=== PATIENT | female | born 1960 | race Caucasian/White ===

== ENCOUNTER 2020-07-21 10:23 | Outpatient (CLI) | payer OTHER | END 2020-07-21 10:24 | disposition home or self-care (01) | LOC: CSHULT 10:23 | PROVIDERS: ATTEND Internal Medicine Gastroenterology | DX: I85.00 Esophageal varices without bleeding (principal); I50.9 Heart failure, unspecified; K72.90 Hepatic failure, unspecified without coma; Z86.010 Personal history of colon polyps; K76.9 Liver disease, unspecified; R16.1 Splenomegaly, not elsewhere classified; K82.8 Other specified diseases of gallbladder | CPT/HCPCS: 93975 ==

== ENCOUNTER 2021-04-13 12:21 | Day surgery (SDC) | payer MEDICAID ==
[2021-04-13 12:54] VITALS: BMI 35.5
[2021-04-13] MEDS ORDERED: Lidocaine 1% PF 5 ML VIAL ONE (12:57)
[2021-04-13] MEDS ORDERED: FLU VACC QS2021-22(6MOS UP)/PF 60 MCG/0.5 ML SYRINGE IM ONE (13:00)
[2021-04-13 15:12] LABS: BF Color Yellow; Body Fluid Source Paracentesis Fluid; Clarity Hazy (Clear); Tube # EDTA
[2021-04-13 15:44] LABS: BF Segmented Neutrophils 62 %; Cell Count Non Hematic 32 %; Lymphocytes 6 %
== END 2021-04-13 14:30 | disposition home or self-care (01) ==
LOC: CSHULT 12:21
PROVIDERS: ATTEND Internal Medicine Gastroenterology
DX: K70.31 Alcoholic cirrhosis of liver with ascites (principal); I50.9 Heart failure, unspecified; I85.00 Esophageal varices without bleeding; K72.90 Hepatic failure, unspecified without coma; M54.9 Dorsalgia, unspecified; E11.9 Type 2 diabetes mellitus without complications; Z79.899 Other long term (current) drug therapy; Z79.4 Long term (current) use of insulin
CPT/HCPCS: 49083; 82042; 84157; 88112; 88305; 89051

== ENCOUNTER 2021-04-18 15:53 | Inpatient (IN) | payer MEDICAID, OTHER ==
[2021-04-18] MEDS ORDERED: Cefepime 2 GM VIAL ONE (17:13)
[2021-04-18 17:43] LABS: INR-International Normal Ratio 1.1; PTT 30.6 sec (22.0-33.0); Prothrombin Time 12.5 sec (9.5-12.1)
[2021-04-18 17:44] LABS: #Basophils 0.1 10x3/uL (0.0-0.2); #Eosinphils 0.3 10x3/uL (0.0-0.5); #Monocytes 0.7 10x3/uL (0.0-1.1); %Eosinophils 3.8 % (0.0-6.0); %Lymphocytes 14.5 % (18.0-47.0); %Monocytes 8.6 % (0.0-10.0); %Neutrophils 71.6 % (40.0-75.0); Hemoglobin 14.3 g/dL (12.0-15.5); Mean Corpuscular HGB CONC 33.1 g/dL (32.0-36.0); Mean Corpuscular Hemoglobin 31.1 pg (27.0-33.0); Mean Corpuscular Volume 93.9 fl (81.6-98.3); Platelet Count 44 10x3/uL (150-450); RBC Distribution Width 14.2 % (11.5-14.5); White Blood Cell (WBC) Count 8.4 10x3/uL (3.5-10.5)
[2021-04-18 17:46] LABS: ALT (SGPT) 26 U/L (8-55); AST (SGOT) 36 U/L (5-34); Albumin 2.5 g/dL (3.5-5.0); Alkaline Phosphatase 228 U/L (40-110); Anion Gap 11 mmol/L (10-20); BUN (Urea Nitrogen) 11 mg/dL (9.8-20.1); Bilirubin, Total 2.2 mg/dL (0.2-1.2); Calc. Creatinine Clearance 0 mL/min (70-130); Calcium 8.5 mg/dL (7.8-10.44); Carbon Dioxide 28 mmol/L (22-29); Chloride 97 mmol/L (98-107); Glucose 327 mg/dL (70-105); Lipase 36 U/L (8-78); Potassium 3.2 mmol/L (3.5-5.1); Protein, Total 6.5 g/dL (6.0-8.3); Sodium 133 mmol/L (136-145)
[2021-04-18 18:19] LABS: Platelet Morphology Comment Appears Decreased; RBC Morphology Normal
[2021-04-18 20:15] LABS: Lactic Acid 3.1 mmol/L (0.5-2.2)
[2021-04-18] MEDS ORDERED: Albumin 25% 25 GM/100 ML BOT IVPB SCH (20:15)
[2021-04-18] MEDS ORDERED: Dextrose 50% Abboject 50 ML SYRINGE SLOW IVP PRN (20:16)
[2021-04-18] MEDS ORDERED: Dextrose 5% in Water 1,000 ML IV PRN (20:16)
[2021-04-18 20:47] LABS: Magnesium 1.6 mg/dL (1.6-2.6)
[2021-04-18] MEDS: Rifaximin 550 MG TAB PO SCH (22:08)
[2021-04-18] MEDS: Propranolol 10 MG TAB PO SCH (22:08)
[2021-04-18] MEDS: Potassium Chloride 20 MEQ TAB PO SCH (22:09)
[2021-04-18] MEDS: Lantus 1000 UNITS/10 ML VIAL SC SCH (22:11)
[2021-04-18] MEDS: HumaLOG 300 UNITS/3 ML VIAL SC PRN (22:15)
[2021-04-18 22:35] VITALS: BMI 35.5
[2021-04-18] MEDS ORDERED: Pregabalin 25 MG CAP PO SCH (23:15)
[2021-04-18] MEDS ORDERED: traMADol HCl 50 MG TAB PO SCH (23:15)
[2021-04-18] MEDS ORDERED: FLU VACC QS2021-22(6MOS UP)/PF 60 MCG/0.5 ML SYRINGE IM ONE (23:45)
[2021-04-19] MEDS: Potassium Chloride 20 MEQ TAB PO SCH (00:25)
[2021-04-19 04:07] LABS: #Basophils 0.1 10x3/uL (0.0-0.2); #Eosinphils 0.2 10x3/uL (0.0-0.5); #Monocytes 0.6 10x3/uL (0.0-1.1); %Basophils 1.2 % (0.0-2.0); %Eosinophils 3.7 % (0.0-6.0); %Lymphocytes 14.4 % (18.0-47.0); %Monocytes 10.2 % (0.0-10.0); Hemoglobin 12.8 g/dL (12.0-15.5); Mean Corpuscular HGB CONC 33.6 g/dL (32.0-36.0); Mean Corpuscular Hemoglobin 31.6 pg (27.0-33.0); Mean Corpuscular Volume 94.1 fl (81.6-98.3); Mean Platelet Volume 12.8 fl (7.4-10.4); Platelet Count 36 10x3/uL (150-450); Red Blood Cell (RBC) Count 4.05 10x6/uL (3.90-5.03); White Blood Cell (WBC) Count 5.7 10x3/uL (3.5-10.5)
[2021-04-19] MEDS: Propranolol 10 MG TAB PO SCH ×3 (04:20→22:58)
[2021-04-19 04:22] LABS: Anion Gap 12 mmol/L (10-20); BUN (Urea Nitrogen) 14 mg/dL (9.8-20.1); Calc. Creatinine Clearance 97 mL/min (70-130); Calcium 8.1 mg/dL (7.8-10.44); Carbon Dioxide 25 mmol/L (22-29); Chloride 104 mmol/L (98-107); Glucose 296 mg/dL (70-105); Potassium 4.1 mmol/L (3.5-5.1); Sodium 137 mmol/L (136-145)
[2021-04-19] MEDS: HumaLOG 300 UNITS/3 ML VIAL SC PRN ×2 (05:51→14:43)
[2021-04-19] MEDS: Cefepime 2 GM in Sodium Chloride 0.9% 100 ML IVPB SCH ×2 (06:06→17:49)
[2021-04-19] MEDS: Albumin 25% 25 GM/100 ML BOT IVPB SCH ×3 (06:52→18:29)
[2021-04-19] MEDS ORDERED: traMADol HCl 50 MG TAB PO SCH (07:26)
[2021-04-19] MEDS: Rifaximin 550 MG TAB PO SCH ×2 (09:35→22:54)
[2021-04-19] MEDS: Lantus 1000 UNITS/10 ML VIAL SC SCH ×2 (09:36→09:40)
[2021-04-19] MEDS: Spironolactone 25 MG TAB PO SCH ×2 (09:36→17:53)
[2021-04-19 14:51] LABS: BF Color Yellow; Body Fluid Source Ascites Body Fluid; Clarity Hazy (Clear); Tube # EDTA
[2021-04-19] MEDS ORDERED: Dextrose 5% in Water 1,000 ML IV PRN (15:01)
[2021-04-19] MEDS ORDERED: Dextrose 50% Abboject 50 ML SYRINGE SLOW IVP PRN (15:01)
[2021-04-19 15:23] LABS: SARS-CoV-2 PCR by NAA Not Detected (NotDetected)
[2021-04-19 15:26] LABS: BF Segmented Neutrophils 43 %; Cell Count Non Hematic 41 %; Lymphocytes 16 %
[2021-04-19] MEDS: Insulin Regular 300 UNITS/3 ML VIAL SC PRN ×2 (18:04→23:20)
[2021-04-19] MEDS: Pregabalin 25 MG CAP PO SCH (22:54)
[2021-04-19] MEDS ORDERED: Lantus 1000 UNITS/10 ML VIAL SC SCH (23:15)
[2021-04-20 04:23] LABS: #Monocytes 0.5 10x3/uL (0.0-1.1); #Neutrophils 5.2 10x3/uL (1.5-8.4); %Eosinophils 3.2 % (0.0-6.0); %Lymphocytes 13.1 % (18.0-47.0); %Monocytes 7.5 % (0.0-10.0); %Neutrophils 74.9 % (40.0-75.0); Hemoglobin 12.6 g/dL (12.0-15.5); Mean Corpuscular HGB CONC 33.2 g/dL (32.0-36.0); Mean Corpuscular Volume 93.4 fl (81.6-98.3); Mean Platelet Volume 13.8 fl (7.4-10.4); Platelet Count 36 10x3/uL (150-450); RBC Distribution Width 14.6 % (11.5-14.5); Red Blood Cell (RBC) Count 4.07 10x6/uL (3.90-5.03); White Blood Cell (WBC) Count 6.9 10x3/uL (3.5-10.5)
[2021-04-20 04:24] LABS: #Basophils 0.1 10x3/uL (0.0-0.2); #Eosinphils 0.2 10x3/uL (0.0-0.5)
[2021-04-20 04:30] LABS: Anion Gap 11 mmol/L (10-20); BUN (Urea Nitrogen) 12 mg/dL (9.8-20.1); Calc. Creatinine Clearance 107 mL/min (70-130); Calcium 8.1 mg/dL (7.8-10.44); Carbon Dioxide 24 mmol/L (22-29); Chloride 107 mmol/L (98-107); Glucose 288 mg/dL (70-105); Potassium 3.9 mmol/L (3.5-5.1); Sodium 138 mmol/L (136-145)
[2021-04-20] MEDS ORDERED: traMADol HCl 50 MG TAB PO SCH (05:00)
[2021-04-20] MEDS: Propranolol 10 MG TAB PO SCH ×3 (05:27→22:06)
[2021-04-20] MEDS: Cefepime 2 GM in Sodium Chloride 0.9% 100 ML IVPB SCH ×2 (05:28→17:58)
[2021-04-20] MEDS: Insulin Regular 300 UNITS/3 ML VIAL SC PRN ×3 (05:28→22:11)
[2021-04-20] MEDS: Lantus 1000 UNITS/10 ML VIAL SC SCH (09:22)
[2021-04-20] MEDS: Spironolactone 25 MG TAB PO SCH ×2 (09:25→17:58)
[2021-04-20] MEDS: Rifaximin 550 MG TAB PO SCH ×2 (09:25→22:08)
[2021-04-20] MEDS: Pregabalin 25 MG CAP PO SCH ×2 (09:26→22:06)
[2021-04-20] MEDS: traMADol HCl 50 MG TAB PO PRN ×2 (09:54→22:22)
[2021-04-20] MEDS ORDERED: Morphine 4 MG/ML VIAL SLOW IVP SCH (10:00)
[2021-04-20] MEDS ORDERED: Lantus 1000 UNITS/10 ML VIAL SC SCH (21:00)
[2021-04-21 04:18] LABS: Anion Gap 10 mmol/L (10-20); BUN (Urea Nitrogen) 12 mg/dL (9.8-20.1); Calc. Creatinine Clearance 114 mL/min (70-130); Calcium 8.3 mg/dL (7.8-10.44); Carbon Dioxide 23 mmol/L (22-29); Chloride 108 mmol/L (98-107); Glucose 165 mg/dL (70-105); Potassium 3.8 mmol/L (3.5-5.1); Sodium 137 mmol/L (136-145)
[2021-04-21 04:35] LABS: #Basophils 0.1 10x3/uL (0.0-0.2); #Eosinphils 0.4 10x3/uL (0.0-0.5); #Monocytes 0.8 10x3/uL (0.0-1.1); #Neutrophils 5.9 10x3/uL (1.5-8.4); %Basophils 1.3 % (0.0-2.0); %Eosinophils 4.4 % (0.0-6.0); %Monocytes 9.1 % (0.0-10.0); %Neutrophils 71.4 % (40.0-75.0); Hemoglobin 12.8 g/dL (12.0-15.5); Mean Corpuscular HGB CONC 33.4 g/dL (32.0-36.0); Mean Corpuscular Hemoglobin 31.1 pg (27.0-33.0); Mean Corpuscular Volume 93.2 fl (81.6-98.3); Mean Platelet Volume 12.5 fl (7.4-10.4); Platelet Count 41 10x3/uL (150-450); RBC Distribution Width 14.8 % (11.5-14.5); Red Blood Cell (RBC) Count 4.11 10x6/uL (3.90-5.03); White Blood Cell (WBC) Count 8.2 10x3/uL (3.5-10.5)
[2021-04-21 04:59] LABS: Platelet Morphology Comment Appears Decreased; RBC Morphology Normal
[2021-04-21] MEDS: Propranolol 10 MG TAB PO SCH (05:20)
[2021-04-21] MEDS: Cefepime 2 GM in Sodium Chloride 0.9% 100 ML IVPB SCH (05:20)
[2021-04-21] MEDS: Lantus 1000 UNITS/10 ML VIAL SC SCH (08:25)
[2021-04-21] MEDS: Pregabalin 25 MG CAP PO SCH (08:26)
[2021-04-21] MEDS: Rifaximin 550 MG TAB PO SCH (08:27)
[2021-04-21] MEDS: Spironolactone 25 MG TAB PO SCH (08:27)
[2021-04-21 09:05] VITALS: BP 111/53; TEMP 97.7
== END 2021-04-21 11:34 | disposition home or self-care (01) | DRG 372 ==
LOC: CSHERS 15:53 → CSHTELE 15:54
PROVIDERS: ADMIT Family Medicine; ATTEND Hospitalist
PROC: 0W9G3ZZ Drainage of Peritoneal Cavity, Percutaneous Approach (ICD-10-PCS; principal; 2021-04-19)
DX: K65.2 Spontaneous bacterial peritonitis (principal); I50.42 Chronic combined systolic (congestive) and diastolic (congestive) heart failure; I85.00 Esophageal varices without bleeding; Z20.822 Contact with and (suspected) exposure to COVID-19; G89.29 Other chronic pain; E87.6 Hypokalemia; K70.31 Alcoholic cirrhosis of liver with ascites; F32.A Depression, unspecified; F17.210 Nicotine dependence, cigarettes, uncomplicated; E11.65 Type 2 diabetes mellitus with hyperglycemia; Z88.8 Allergy status to other drugs, medicaments and biological substances; Z79.4 Long term (current) use of insulin; Z90.710 Acquired absence of both cervix and uterus; Z79.899 Other long term (current) drug therapy; Z90.722 Acquired absence of ovaries, bilateral; Z95.810 Presence of automatic (implantable) cardiac defibrillator; Z90.89 Acquired absence of other organs
CPT/HCPCS: 36415; 36416; 49083; 80048; 80053; 82140; 83605; 83690; 83735; 85025; 85610; 85730; 87040; 87070; 87205; 89051; 93005; 96365; 96367; J0692; J1815; J2270; J3370; J3490; P9047; U0003; U0005

== ENCOUNTER 2021-08-01 18:17 | Inpatient (IN) | payer MEDICARE, MEDICAID ==
[~2021-08-01 18:17] MED LIST: Iopamidol 300 61% 100 ML VIAL FS ONE
[2021-08-01 19:55] LABS: #Basophils 0.1 10x3/uL (0.0-0.2); #Eosinphils 0.2 10x3/uL (0.0-0.5); #Monocytes 0.5 10x3/uL (0.0-1.1); #Neutrophils 3.3 10x3/uL (1.5-8.4); %Basophils 1.7 % (0.0-2.0); %Monocytes 10.2 % (0.0-10.0); %Neutrophils 63.9 % (40.0-75.0); Hemoglobin 14.4 g/dL (12.0-15.5); Mean Corpuscular HGB CONC 35.2 g/dL (32.0-36.0); Mean Corpuscular Volume 90.9 fl (81.6-98.3); Mean Platelet Volume 14.5 fl (7.4-10.4); Platelet Count 33 10x3/uL (150-450); RBC Distribution Width 15.2 % (11.5-14.5); White Blood Cell (WBC) Count 5.2 10x3/uL (3.5-10.5)
[2021-08-01 20:03] LABS: INR-International Normal Ratio 1.2; PTT 27.2 sec (22.0-33.0); Prothrombin Time 12.5 sec (9.5-12.1)
[2021-08-01 20:04] LABS: Magnesium 1.5 mg/dL (1.6-2.6)
[2021-08-01 20:12] LABS: ALT (SGPT) 31 U/L (8-55); AST (SGOT) 43 U/L (5-34); Albumin 2.6 g/dL (3.5-5.0); Alkaline Phosphatase 343 U/L (40-110); Anion Gap 13 mmol/L (10-20); BUN (Urea Nitrogen) 15 mg/dL (9.8-20.1); Bilirubin, Total 1.7 mg/dL (0.2-1.2); Calc. Creatinine Clearance 0 mL/min (70-130); Calcium 7.8 mg/dL (7.8-10.44); Carbon Dioxide 22 mmol/L (22-29); Chloride 97 mmol/L (98-107); Globulin 3.8 g/dL (2.4-3.5); Glucose 572 mg/dL (70-105); Potassium 3.3 mmol/L (3.5-5.1); Protein, Total 6.4 g/dL (6.0-8.3); Sodium 129 mmol/L (136-145)
[2021-08-01] MEDS ORDERED: traMADol HCl 50 MG TAB ONE (21:50)
[2021-08-01] MEDS ORDERED: Dextrose 50% Abboject 50 ML SYRINGE SLOW IVP PRN (21:58)
[2021-08-01] MEDS ORDERED: Calcium Carbonate 500 MG ChewTAB PO PRN (21:58)
[2021-08-01] MEDS ORDERED: HumaLOG 300 UNITS/3 ML VIAL SC PRN (21:58)
[2021-08-01] MEDS ORDERED: Senokot S 8.6-50 MG TAB PO PRN (21:58)
[2021-08-01] MEDS ORDERED: Dextrose 5% in Water 1,000 ML IV PRN (21:58)
[2021-08-01] MEDS ORDERED: Guaifenesin DM 100-10/5 ML UDCUP PO PRN (21:58)
[2021-08-01] MEDS ORDERED: Acetaminophen 325 MG TAB PO PRN (21:58)
[2021-08-01] MEDS ORDERED: Ondansetron PF 4 MG/2 ML Vial IVP PRN (21:58)
[2021-08-01] MEDS ORDERED: Potassium Chloride 20 MEQ TAB PO SCH (22:15)
[2021-08-01] MEDS ORDERED: Furosemide 20 MG/2 ML VIAL SLOW IVP SCH (22:15)
[2021-08-01] MEDS ORDERED: Magnesium 2 GM/50 ML(in water) 2 GM in Premix Bag 1 BAG IVPB SCH (22:30)
[2021-08-01] MEDS ORDERED: Electrolyte Replacement Protocol FS SCH (22:30)
[2021-08-02 00:23] VITALS: BMI 33.5
[2021-08-02] MEDS ORDERED: Insulin Regular 300 UNITS/3 ML VIAL IVP SCH ×2 (00:30→05:15)
[2021-08-02] MEDS: Nicotine 14 MG PATCH TD SCH ×2 (00:53→21:01)
[2021-08-02] MEDS: Albumin 25% 25 GM/100 ML BOT IVPB SCH ×4 (00:54→18:14)
[2021-08-02 04:42] LABS: #Basophils 0.1 10x3/uL (0.0-0.2); #Eosinphils 0.1 10x3/uL (0.0-0.5); #Monocytes 0.5 10x3/uL (0.0-1.1); #Neutrophils 2.6 10x3/uL (1.5-8.4); %Basophils 1.5 % (0.0-2.0); %Eosinophils 3.6 % (0.0-6.0); %Monocytes 11.7 % (0.0-10.0); %Neutrophils 66.9 % (40.0-75.0); Hemoglobin 13.8 g/dL (12.0-15.5); Mean Corpuscular HGB CONC 34.6 g/dL (32.0-36.0); Mean Corpuscular Hemoglobin 31.3 pg (27.0-33.0); Mean Corpuscular Volume 90.5 fl (81.6-98.3); Platelet Count 33 10x3/uL (150-450); RBC Distribution Width 15.2 % (11.5-14.5); Red Blood Cell (RBC) Count 4.41 10x6/uL (3.90-5.03); White Blood Cell (WBC) Count 3.9 10x3/uL (3.5-10.5)
[2021-08-02 04:49] LABS: ALT (SGPT) 30 U/L (8-55); AST (SGOT) 32 U/L (5-34); Albumin 2.9 g/dL (3.5-5.0); Alkaline Phosphatase 327 U/L (40-110); Anion Gap 15 mmol/L (10-20); BUN (Urea Nitrogen) 16 mg/dL (9.8-20.1); Bilirubin, Total 1.3 mg/dL (0.2-1.2); Calc. Creatinine Clearance 71 mL/min (70-130); Calcium 8.3 mg/dL (7.8-10.44); Carbon Dioxide 21 mmol/L (22-29); Chloride 98 mmol/L (98-107); Globulin 3.7 g/dL (2.4-3.5); Potassium 3.1 mmol/L (3.5-5.1); Protein, Total 6.6 g/dL (6.0-8.3); Sodium 131 mmol/L (136-145)
[2021-08-02 04:51] LABS: Glucose 700 mg/dL (70-105)
[2021-08-02] MEDS ORDERED: Magnesium 2 GM/50 ML(in water) 2 GM in Premix Bag 1 BAG IVPB SCH ×2 (05:15→11:30)
[2021-08-02] MEDS ORDERED: Potassium Chloride 20 MEQ TAB PO SCH ×4 (05:15→18:00)
[2021-08-02] MEDS: HumaLOG 300 UNITS/3 ML VIAL SC PRN ×3 (05:25→18:14)
[2021-08-02] MEDS ORDERED: Dextrose 50% Abboject 50 ML SYRINGE SLOW IVP PRN (05:29)
[2021-08-02] MEDS ORDERED: Dextrose 5% in Water 1,000 ML IV PRN (05:29)
[2021-08-02] MEDS ORDERED: Sodium Chloride 0.9% 500 ML IV SCH (05:30)
[2021-08-02] MEDS: Furosemide 20 MG/2 ML VIAL SLOW IVP SCH ×2 (05:50→13:58)
[2021-08-02] MEDS: traMADol HCl 50 MG TAB PO PRN ×2 (07:18→15:08)
[2021-08-02] MEDS: Propranolol 10 MG TAB PO SCH ×3 (08:53→21:02)
[2021-08-02] MEDS: Rifaximin 550 MG TAB PO SCH ×2 (08:54→21:01)
[2021-08-02] MEDS ORDERED: BIOTIN 10000 MCG PO SCH (09:00)
[2021-08-02] MEDS ORDERED: Lantus 1000 UNITS/10 ML VIAL SC SCH ×4 (09:00→21:00)
[2021-08-02] MEDS ORDERED: Spironolactone 25 MG TAB PO SCH (09:00)
[2021-08-02 09:24] LABS: Glucose 568 mg/dL (70-105)
[2021-08-02 10:34] LABS: Anion Gap 14 mmol/L (10-20); BUN (Urea Nitrogen) 14 mg/dL (9.8-20.1); Calc. Creatinine Clearance 82 mL/min (70-130); Calcium 8.1 mg/dL (7.8-10.44); Carbon Dioxide 24 mmol/L (22-29); Chloride 98 mmol/L (98-107); Glucose 655 mg/dL (70-105); Potassium 3.5 mmol/L (3.5-5.1); Sodium 132 mmol/L (136-145)
[2021-08-02 12:37] LABS: Hemoglobin A1c Greater than 14.0 % (4.0-6.0)
[2021-08-02] MEDS: DULoxetine 30 MG CAP PO SCH ×2 (13:56→21:01)
[2021-08-02] MEDS: Pregabalin 25 MG CAP PO SCH ×2 (14:51→21:01)
[2021-08-02 16:17] LABS: SARS-CoV-2 PCR by NAA Not Detected (NotDetected)
[2021-08-02 17:21] LABS: Potassium 3.2 mmol/L (3.5-5.1)
[2021-08-03] MEDS: HumaLOG 300 UNITS/3 ML VIAL SC PRN ×2 (00:14→05:32)
[2021-08-03 05:18] LABS: #Eosinphils 0.2 10x3/uL (0.0-0.5); #Monocytes 0.5 10x3/uL (0.0-1.1); #Neutrophils 2.8 10x3/uL (1.5-8.4); %Basophils 0.9 % (0.0-2.0); %Eosinophils 4.4 % (0.0-6.0); %Lymphocytes 19.3 % (18.0-47.0); %Monocytes 11.4 % (0.0-10.0); %Neutrophils 63.8 % (40.0-75.0); Hemoglobin 12.8 g/dL (12.0-15.5); Mean Corpuscular HGB CONC 34.9 g/dL (32.0-36.0); Mean Corpuscular Hemoglobin 31.4 pg (27.0-33.0); Mean Corpuscular Volume 90.2 fl (81.6-98.3); Platelet Count 29 10x3/uL (150-450); RBC Distribution Width 15.3 % (11.5-14.5); Red Blood Cell (RBC) Count 4.07 10x6/uL (3.90-5.03); White Blood Cell (WBC) Count 4.3 10x3/uL (3.5-10.5)
[2021-08-03 05:36] LABS: Anion Gap 12 mmol/L (10-20); BUN (Urea Nitrogen) 10 mg/dL (9.8-20.1); Calc. Creatinine Clearance 109 mL/min (70-130); Calcium 8.6 mg/dL (7.8-10.44); Carbon Dioxide 24 mmol/L (22-29); Chloride 107 mmol/L (98-107); Glucose 198 mg/dL (70-105); Magnesium 1.7 mg/dL (1.6-2.6); Phosphorus 2.4 mg/dL (2.3-4.7); Potassium 3.2 mmol/L (3.5-5.1); Sodium 140 mmol/L (136-145)
[2021-08-03] MEDS ORDERED: Magnesium 2 GM/50 ML(in water) 2 GM in Premix Bag 1 BAG IVPB SCH (05:45)
[2021-08-03] MEDS ORDERED: Potassium Chloride 20 MEQ TAB PO SCH (05:45)
[2021-08-03] MEDS: Furosemide 20 MG/2 ML VIAL SLOW IVP SCH (05:58)
[2021-08-03] MEDS ORDERED: Lantus 1000 UNITS/10 ML VIAL SC SCH (09:00)
[2021-08-03] MEDS: Pregabalin 25 MG CAP PO SCH (10:14)
[2021-08-03] MEDS: Rifaximin 550 MG TAB PO SCH (10:18)
[2021-08-03] MEDS: DULoxetine 30 MG CAP PO SCH (10:18)
[2021-08-03] MEDS: traMADol HCl 50 MG TAB PO PRN (10:19)
[2021-08-03] MEDS: Propranolol 10 MG TAB PO SCH ×2 (10:20→16:23)
[2021-08-03 16:24] VITALS: BP 104/55; TEMP 99.3
== END 2021-08-03 17:15 | disposition home or self-care (01) | DRG 432 ==
LOC: CSHERS 18:17 → CSHTELE 23:41
PROVIDERS: ADMIT Student in an Organized Health Care Education/Training Program; ATTEND Internal Medicine
DX: K70.31 Alcoholic cirrhosis of liver with ascites (principal); I50.23 Acute on chronic systolic (congestive) heart failure; J96.01 Acute respiratory failure with hypoxia; K76.6 Portal hypertension; I85.10 Secondary esophageal varices without bleeding; Z20.822 Contact with and (suspected) exposure to COVID-19; E11.65 Type 2 diabetes mellitus with hyperglycemia; F17.210 Nicotine dependence, cigarettes, uncomplicated; G89.29 Other chronic pain; E89.0 Postprocedural hypothyroidism; E87.6 Hypokalemia; E83.42 Hypomagnesemia; E78.5 Hyperlipidemia, unspecified; E78.00 Pure hypercholesterolemia, unspecified; F32.A Depression, unspecified; D69.6 Thrombocytopenia, unspecified; E11.42 Type 2 diabetes mellitus with diabetic polyneuropathy; Z79.4 Long term (current) use of insulin; Z79.899 Other long term (current) drug therapy; Z88.8 Allergy status to other drugs, medicaments and biological substances; Z90.710 Acquired absence of both cervix and uterus; Z90.722 Acquired absence of ovaries, bilateral; Z95.810 Presence of automatic (implantable) cardiac defibrillator; Z82.49 Family history of ischemic heart disease and other diseases of the circulatory system; Z90.89 Acquired absence of other organs
CPT/HCPCS: 36415; 36416; 74177; 80048; 80053; 82105; 83036; 83735; 83880; 84100; 85025; 85610; 85730; 94760; J1815; J1940; J3475; J7030; P9047; Q9967; U0003; U0005

== ENCOUNTER 2021-10-12 20:36 | Inpatient (IN) | payer MEDICARE, MEDICAID ==
[2021-10-12 23:37] LABS: #Basophils 0.1 10x3/uL (0.0-0.2); #Eosinphils 0.2 10x3/uL (0.0-0.5); #Monocytes 1.1 10x3/uL (0.0-1.1); #Neutrophils 4.8 10x3/uL (1.5-8.4); %Basophils 1.4 % (0.0-2.0); %Eosinophils 3.2 % (0.0-6.0); %Lymphocytes 12.8 % (18.0-47.0); %Monocytes 14.8 % (0.0-10.0); %Neutrophils 67.4 % (40.0-75.0); Hemoglobin 14.7 g/dL (12.0-15.5); Mean Corpuscular HGB CONC 34.9 g/dL (32.0-36.0); Mean Corpuscular Hemoglobin 30.9 pg (27.0-33.0); Mean Corpuscular Volume 88.4 fl (81.6-98.3); Mean Platelet Volume 13.1 fl (7.4-10.4); Platelet Count 58 10x3/uL (150-450); RBC Distribution Width 14.7 % (11.5-14.5); Red Blood Cell (RBC) Count 4.76 10x6/uL (3.90-5.03); White Blood Cell (WBC) Count 7.1 10x3/uL (3.5-10.5)
[2021-10-12 23:41] LABS: INR-International Normal Ratio 1.1; PTT 30.2 sec (22.0-33.0); Prothrombin Time 12.2 sec (9.5-12.1)
[2021-10-12 23:41] LABS: Bilirubin Neg (Negative); Blood, Urine 10 (Negative); Clarity Clear (Clear); Glucose, Urine (Dipstick) 50 mg/dL (Negative); Ketone, Urine Negative (Negative); Leukocyte 25 (Negative); Nitrite Negative (Negative); Protein, Urine (Dipstick) 15 mg/dl (Neg-Trace); Specific Gravity, Urine 1.015 (1.002-1.036); pH, Urine 6.5 (5.0-9.0)
[2021-10-12 23:44] LABS: ALT (SGPT) 35 U/L (8-55); AST (SGOT) 48 U/L (5-34); Albumin 2.7 g/dL (3.5-5.0); Alkaline Phosphatase 220 U/L (40-110); Anion Gap 15 mmol/L (10-20); BUN (Urea Nitrogen) 17 mg/dL (9.8-20.1); Calc. Creatinine Clearance 0 mL/min (70-130); Calcium 8.6 mg/dL (7.8-10.44); Carbon Dioxide 23 mmol/L (22-29); Chloride 99 mmol/L (98-107); Globulin 3.9 g/dL (2.4-3.5); Glucose 267 mg/dL (70-105); Lipase 57 U/L (8-78); Protein, Total 6.6 g/dL (6.0-8.3); Sodium 134 mmol/L (136-145)
[2021-10-12 23:47] LABS: Potassium 2.8 mmol/L (3.5-5.1)
[2021-10-12 23:51] LABS: RBC/HPF 0-3 HPF (0-3); Squamous Epithelial 0-3 HPF (0-3); WBC/HPF 0-3 HPF (0-3)
[2021-10-12 23:52] LABS: Bacteria/HPF 1+ HPF (None Seen)
[2021-10-13] MEDS ORDERED: Potassium Chloride 20 MEQ TAB ONE (00:03)
[2021-10-13 00:25] LABS: Magnesium 1.5 mg/dL (1.6-2.6)
[2021-10-13] MEDS ORDERED: Calcium Carbonate 500 MG ChewTAB PO PRN (00:28)
[2021-10-13] MEDS ORDERED: Dextrose 50% Abboject 50 ML SYRINGE SLOW IVP PRN (00:28)
[2021-10-13] MEDS ORDERED: Senokot S 8.6-50 MG TAB PO PRN (00:28)
[2021-10-13] MEDS ORDERED: Dextrose 5% in Water 1,000 ML IV PRN (00:28)
[2021-10-13] MEDS ORDERED: Guaifenesin DM 100-10/5 ML UDCUP PO PRN (00:28)
[2021-10-13] MEDS ORDERED: Acetaminophen 325 MG TAB PO PRN (00:28)
[2021-10-13] MEDS ORDERED: Ondansetron PF 4 MG/2 ML Vial IVP PRN (00:28)
[2021-10-13] MEDS ORDERED: traMADol HCl 50 MG TAB PO PRN (00:32)
[2021-10-13] MEDS ORDERED: Furosemide 100 MG/10 ML VIAL ONE (01:33)
[2021-10-13] MEDS ORDERED: Albumin 25% 25 GM/100 ML BOT IVPB SCH ×3 (02:30→19:00)
[2021-10-13] MEDS ORDERED: Potassium Chloride 20 MEQ TAB PO SCH (02:30)
[2021-10-13] MEDS ORDERED: Furosemide 40 MG/4 ML VIAL SLOW IVP SCH ×3 (02:30→14:00)
[2021-10-13 02:35] VITALS: BMI 37.1
[2021-10-13] MEDS ORDERED: Magnesium 2 GM/50 ML(in water) 2 GM in Premix Bag 1 BAG IVPB SCH (03:00)
[2021-10-13] MEDS: HumaLOG 300 UNITS/3 ML VIAL SC PRN ×5 (03:08→21:51)
[2021-10-13 04:37] LABS: #Basophils 0.1 10x3/uL (0.0-0.2); #Eosinphils 0.2 10x3/uL (0.0-0.5); #Monocytes 0.7 10x3/uL (0.0-1.1); #Neutrophils 4.5 10x3/uL (1.5-8.4); %Basophils 1.1 % (0.0-2.0); %Eosinophils 2.8 % (0.0-6.0); %Lymphocytes 13.8 % (18.0-47.0); %Monocytes 11.3 % (0.0-10.0); %Neutrophils 70.7 % (40.0-75.0); Hemoglobin 14.9 g/dL (12.0-15.5); Mean Corpuscular HGB CONC 34.4 g/dL (32.0-36.0); Mean Corpuscular Hemoglobin 30.7 pg (27.0-33.0); Mean Corpuscular Volume 89.1 fl (81.6-98.3); Mean Platelet Volume 13.5 fl (7.4-10.4); Platelet Count 57 10x3/uL (150-450); RBC Distribution Width 14.6 % (11.5-14.5); Red Blood Cell (RBC) Count 4.86 10x6/uL (3.90-5.03); White Blood Cell (WBC) Count 6.4 10x3/uL (3.5-10.5)
[2021-10-13 04:46] LABS: Anion Gap 17 mmol/L (10-20); BUN (Urea Nitrogen) 16 mg/dL (9.8-20.1); Calc. Creatinine Clearance 93 mL/min (70-130); Calcium 8.6 mg/dL (7.8-10.44); Carbon Dioxide 22 mmol/L (22-29); Chloride 99 mmol/L (98-107); Glucose 447 mg/dL (70-105); Magnesium 1.6 mg/dL (1.6-2.6); Potassium 3.7 mmol/L (3.5-5.1); Sodium 134 mmol/L (136-145)
[2021-10-13 05:37] LABS: SARS-CoV-2 NAA Rapid Test Not Detected (NotDetected)
[2021-10-13] MEDS ORDERED: Lidocaine 1% PF 5 ML VIAL ONE (08:04)
[2021-10-13] MEDS ORDERED: Sodium Bicarbonate 2.5 MEQ/5 ML VIAL ONE (08:05)
[2021-10-13] MEDS ORDERED: Non-Formulary Medication 1 EACH (Biotin [Biotin] 10,000 MCG Capsule) PO SCH (09:00)
[2021-10-13] MEDS ORDERED: DULoxetine 30 MG CAP PO SCH (09:00)
[2021-10-13] MEDS: Ferrous Sulfate 325 MG TAB PO SCH (10:37)
[2021-10-13] MEDS: Lantus 1000 UNITS/10 ML VIAL SC SCH (10:38)
[2021-10-13] MEDS: Spironolactone 25 MG TAB PO SCH (10:38)
[2021-10-13] MEDS: busPIRone HCl 15 MG TAB PO SCH ×2 (10:38→21:29)
[2021-10-13] MEDS: Propranolol 10 MG TAB PO SCH ×3 (10:38→21:29)
[2021-10-13] MEDS: Pregabalin 25 MG CAP PO SCH ×2 (10:38→21:28)
[2021-10-13] MEDS ORDERED: Cyclobenzaprine 10 MG TAB PO PRN (18:27)
[2021-10-13] MEDS: DULoxetine 30 MG CAP PO SCH (21:29)
[2021-10-13] MEDS: Rifaximin 550 MG TAB PO SCH (21:30)
[2021-10-14] MEDS ORDERED: Albumin 25% 25 GM/100 ML BOT IVPB SCH (04:00)
[2021-10-14 05:21] LABS: Anion Gap 13 mmol/L (10-20); BUN (Urea Nitrogen) 16 mg/dL (9.8-20.1); Calc. Creatinine Clearance 83 mL/min (70-130); Calcium 8.1 mg/dL (7.8-10.44); Carbon Dioxide 22 mmol/L (22-29); Chloride 105 mmol/L (98-107); Glucose 382 mg/dL (70-105); Magnesium 1.7 mg/dL (1.6-2.6); Potassium 3.6 mmol/L (3.5-5.1); Sodium 136 mmol/L (136-145)
[2021-10-14] MEDS: HumaLOG 300 UNITS/3 ML VIAL SC PRN ×2 (06:14→12:21)
[2021-10-14] MEDS ORDERED: Furosemide 40 MG TAB PO SCH (09:00)
[2021-10-14] MEDS ORDERED: FLUoxetine HCl 20 MG CAP PO SCH ×2 (09:00)
[2021-10-14] MEDS: Spironolactone 25 MG TAB PO SCH (09:33)
[2021-10-14] MEDS: DULoxetine 30 MG CAP PO SCH (09:33)
[2021-10-14] MEDS: Rifaximin 550 MG TAB PO SCH (09:33)
[2021-10-14] MEDS: Propranolol 10 MG TAB PO SCH (09:34)
[2021-10-14] MEDS: Ferrous Sulfate 325 MG TAB PO SCH (09:34)
[2021-10-14] MEDS: busPIRone HCl 15 MG TAB PO SCH (09:34)
[2021-10-14] MEDS: Lantus 1000 UNITS/10 ML VIAL SC SCH (09:35)
[2021-10-14] MEDS: Pregabalin 25 MG CAP PO SCH (09:37)
[2021-10-14 12:20] VITALS: BP 117/58; TEMP 98.3
== END 2021-10-14 14:25 | disposition home or self-care (01) | DRG 432 ==
LOC: CSHERS 20:36 → CSHTELE 10-13 02:21
PROVIDERS: ADMIT Student in an Organized Health Care Education/Training Program; ATTEND Internal Medicine
PROC: 0W9G3ZZ Drainage of Peritoneal Cavity, Percutaneous Approach (ICD-10-PCS; principal; 2021-10-13)
DX: K70.31 Alcoholic cirrhosis of liver with ascites (principal); J96.01 Acute respiratory failure with hypoxia; I50.42 Chronic combined systolic (congestive) and diastolic (congestive) heart failure; I85.00 Esophageal varices without bleeding; K76.6 Portal hypertension; F17.200 Nicotine dependence, unspecified, uncomplicated; I11.0 Hypertensive heart disease with heart failure; G89.29 Other chronic pain; E11.40 Type 2 diabetes mellitus with diabetic neuropathy, unspecified; E11.65 Type 2 diabetes mellitus with hyperglycemia; E87.6 Hypokalemia; E83.42 Hypomagnesemia; D69.6 Thrombocytopenia, unspecified; F32.A Depression, unspecified; Z20.822 Contact with and (suspected) exposure to COVID-19; Z91.11 Patient's noncompliance with dietary regimen; Z79.4 Long term (current) use of insulin; Z79.899 Other long term (current) drug therapy; Z88.8 Allergy status to other drugs, medicaments and biological substances; Z90.710 Acquired absence of both cervix and uterus; Z90.721 Acquired absence of ovaries, unilateral; Z98.890 Other specified postprocedural states; Z82.49 Family history of ischemic heart disease and other diseases of the circulatory system; Z95.810 Presence of automatic (implantable) cardiac defibrillator
CPT/HCPCS: 36416; 49083; 70450; 71045; 76705; 80048; 80053; 81003; 81015; 82140; 83690; 83735; 83880; 85025; 85610; 85730; 93005; 93306; 94760; J1815; J1940; J3475; P9047; U0002

== ENCOUNTER 2021-10-15 14:24 | Inpatient (IN) | payer MEDICARE, MEDICAID ==
[2021-10-15 15:15] LABS: #Basophils 0.1 10x3/uL (0.0-0.2); #Eosinphils 0.2 10x3/uL (0.0-0.5); #Monocytes 0.6 10x3/uL (0.0-1.1); #Neutrophils 5.1 10x3/uL (1.5-8.4); %Basophils 1.5 % (0.0-2.0); %Eosinophils 3.5 % (0.0-6.0); %Lymphocytes 10.7 % (18.0-47.0); %Neutrophils 74.9 % (40.0-75.0); Hemoglobin 13.7 g/dL (12.0-15.5); Mean Corpuscular HGB CONC 34.2 g/dL (32.0-36.0); Mean Corpuscular Volume 90.7 fl (81.6-98.3); Mean Platelet Volume 13.9 fl (7.4-10.4); Platelet Count 50 10x3/uL (150-450); RBC Distribution Width 14.7 % (11.5-14.5); Red Blood Cell (RBC) Count 4.42 10x6/uL (3.90-5.03); White Blood Cell (WBC) Count 6.8 10x3/uL (3.5-10.5)
[2021-10-15 15:16] LABS: ALT (SGPT) 39 U/L (8-55); AST (SGOT) 57 U/L (5-34); Albumin 3.4 g/dL (3.5-5.0); Alkaline Phosphatase 209 U/L (40-110); Anion Gap 17 mmol/L (10-20); BUN (Urea Nitrogen) 14 mg/dL (9.8-20.1); Bilirubin, Total 3.1 mg/dL (0.2-1.2); Calc. Creatinine Clearance 0 mL/min (70-130); Carbon Dioxide 22 mmol/L (22-29); Chloride 105 mmol/L (98-107); Globulin 2.7 g/dL (2.4-3.5); Glucose 302 mg/dL (70-105); Potassium 3.5 mmol/L (3.5-5.1); Protein, Total 6.1 g/dL (6.0-8.3); Sodium 140 mmol/L (136-145)
[2021-10-15 15:27] LABS: Bilirubin Neg (Negative); Blood, Urine Negative (Negative); Clarity Clear (Clear); Glucose, Urine (Dipstick) >=1000 mg/dL (Negative); Ketone, Urine Negative (Negative); Leukocyte Negative (Negative); Nitrite Negative (Negative); Protein, Urine (Dipstick) 15 mg/dl (Neg-Trace); pH, Urine 6.5 (5.0-9.0)
[2021-10-15 15:29] LABS: Acetaminophen Less than 10.0 mcg/mL (10.0-30.0); Alcohol Less than 10 mg/dL (Less than 10); Salicylate Less than 8.0 mg/dL (15.0-30.0)
[2021-10-15 15:37] LABS: Amphetamine Not Detected (NotDetected); Barbiturates Screen Not Detected (NotDetected); Benzodiazepine Screen Not Detected (NotDetected); Cocaine Metabolite Screen Not Detected (NotDetected); Methadone Not Detected (NotDetected); Methamphetamine Not Detected (NotDetected); Opiate Screen Not Detected (NotDetected); Oxycodone Screen Not Detected (NotDetected); Phencyclidine (PCP) Not Detected (NotDetected); THC/Cannabinoid Screen Not Detected (NotDetected); Tricyclic Screen Not Detected (NotDetected)
[2021-10-15 16:12] LABS: SARS-CoV-2 NAA Rapid Test Not Detected (NotDetected)
[2021-10-15 16:32] LABS: ALV-art Gradient 82.965 mmHg (0-20); Actual Bicarbonate (HCO3a) 22.8 mEq/L (22-28); Base Excess (BEa) 0.5 mEq/L (-2.0 to +3.0); CO2 Tension 30.3 mmHg (35.0-45.0); Calcium, Ionized (arterial) 1.18 mmol/L (1.12-1.30); Carboxyhemoglobin (COHb) 1.1 gm% (0.0-3.0); Critical Notified By: CP.PH; Hemoglobin (Hb) 13.6 g/dL (12.0-16.0); O2 Tension (PaO2), arterial 78.8 mmHg (> 80.0); Potassium - ABG Lab 3.4 mmol/L (3.70-5.30); Puncture Site RRA; RapidComm Collect By CP.PH
[2021-10-15] MEDS ORDERED: HYDROcodone/Acetaminophen 5/325 mg Tablet PO PRN (16:56)
[2021-10-15] MEDS ORDERED: Senokot S 8.6-50 MG TAB PO PRN (16:56)
[2021-10-15] MEDS ORDERED: Ondansetron PF 4 MG/2 ML Vial IVP PRN (16:56)
[2021-10-15] MEDS ORDERED: Ondansetron ODT 4 MG TAB PO PRN (16:56)
[2021-10-15] MEDS ORDERED: HYDROcodone/Acetaminophen 7.5/325 mg Tablet PO PRN (16:56)
[2021-10-15] MEDS: Rifaximin 550 MG TAB PO SCH (21:51)
[2021-10-15] MEDS ORDERED: Dextrose 50% Abboject 50 ML SYRINGE SLOW IVP PRN (22:06)
[2021-10-15] MEDS ORDERED: Dextrose 5% in Water 1,000 ML IV PRN (22:06)
[2021-10-15] MEDS: HumaLOG 300 UNITS/3 ML VIAL SC PRN (22:35)
[2021-10-16 03:51] LABS: #Basophils 0.1 10x3/uL (0.0-0.2); #Eosinphils 0.2 10x3/uL (0.0-0.5); #Monocytes 0.5 10x3/uL (0.0-1.1); #Neutrophils 3.6 10x3/uL (1.5-8.4); %Basophils 1.5 % (0.0-2.0); %Eosinophils 2.9 % (0.0-6.0); %Lymphocytes 16.2 % (18.0-47.0); %Monocytes 9.9 % (0.0-10.0); %Neutrophils 69.1 % (40.0-75.0); Hemoglobin 13.4 g/dL (12.0-15.5); Mean Corpuscular HGB CONC 35.4 g/dL (32.0-36.0); Mean Corpuscular Hemoglobin 31.5 pg (27.0-33.0); Mean Corpuscular Volume 88.7 fl (81.6-98.3); Platelet Count 46 10x3/uL (150-450); RBC Distribution Width 15.1 % (11.5-14.5); Red Blood Cell (RBC) Count 4.26 10x6/uL (3.90-5.03); White Blood Cell (WBC) Count 5.2 10x3/uL (3.5-10.5)
[2021-10-16 03:58] LABS: Anion Gap 15 mmol/L (10-20); BUN (Urea Nitrogen) 11 mg/dL (9.8-20.1); Calc. Creatinine Clearance 106 mL/min (70-130); Calcium 8.8 mg/dL (7.8-10.44); Carbon Dioxide 21 mmol/L (22-29); Chloride 109 mmol/L (98-107); Glucose 268 mg/dL (70-105); Potassium 3.7 mmol/L (3.5-5.1); Sodium 141 mmol/L (136-145)
[2021-10-16] MEDS: HumaLOG 300 UNITS/3 ML VIAL SC PRN ×5 (05:49→20:56)
[2021-10-16] MEDS: Furosemide 20 MG/2 ML VIAL SLOW IVP SCH ×2 (05:50→13:53)
[2021-10-16] MEDS: Spironolactone 25 MG TAB PO SCH (08:18)
[2021-10-16] MEDS: Rifaximin 550 MG TAB PO SCH ×3 (08:19→22:30)
[2021-10-16] MEDS: Lidocaine 5% Patch TD SCH (16:25)
[2021-10-16] MEDS: traMADol HCl 50 MG TAB PO PRN (22:10)
[2021-10-16] MEDS ORDERED: Morphine 2 MG/ML VIAL SLOW IVP SCH (23:15)
[2021-10-17] MEDS: Acetaminophen 325 MG TAB PO PRN ×2 (02:03→08:52)
[2021-10-17] MEDS: traMADol HCl 50 MG TAB PO PRN (04:55)
[2021-10-17] MEDS: Transdermal Patch Removal TOP SCH (04:59)
[2021-10-17] MEDS: Furosemide 20 MG/2 ML VIAL SLOW IVP SCH (05:04)
[2021-10-17] MEDS: Spironolactone 25 MG TAB PO SCH (08:04)
[2021-10-17] MEDS: HumaLOG 300 UNITS/3 ML VIAL SC PRN ×4 (08:04→21:13)
[2021-10-17 08:36] LABS: Hemoglobin 13.4 g/dL (12.0-15.5); Mean Corpuscular HGB CONC 33.9 g/dL (32.0-36.0); Mean Corpuscular Hemoglobin 31.2 pg (27.0-33.0); Mean Corpuscular Volume 92.1 fl (81.6-98.3); Platelet Count 39 10x3/uL (150-450); RBC Distribution Width 15.3 % (11.5-14.5); Red Blood Cell (RBC) Count 4.29 10x6/uL (3.90-5.03); White Blood Cell (WBC) Count 5.4 10x3/uL (3.5-10.5)
[2021-10-17 08:41] LABS: INR-International Normal Ratio 1.3; Prothrombin Time 13.5 sec (9.5-12.1)
[2021-10-17 08:59] LABS: ALT (SGPT) 38 U/L (8-55); AST (SGOT) 55 U/L (5-34); Alkaline Phosphatase 155 U/L (40-110); Anion Gap 16 mmol/L (10-20); BUN (Urea Nitrogen) 13 mg/dL (9.8-20.1); Bilirubin, Total 3.5 mg/dL (0.2-1.2); Calc. Creatinine Clearance 100 mL/min (70-130); Calcium 8.4 mg/dL (7.8-10.44); Carbon Dioxide 23 mmol/L (22-29); Chloride 105 mmol/L (98-107); Globulin 3.2 g/dL (2.4-3.5); Glucose 281 mg/dL (70-105); Potassium 3.8 mmol/L (3.5-5.1); Protein, Total 6.2 g/dL (6.0-8.3); Sodium 140 mmol/L (136-145)
[2021-10-17] MEDS ORDERED: Furosemide 40 MG TAB PO SCH (12:00)
[2021-10-17] MEDS ORDERED: HYDROcodone/Acetaminophen 5/325 mg Tablet PO SCH (12:00)
[2021-10-17] MEDS: HYDROcodone/Acetaminophen 5/325 mg Tablet PO PRN ×2 (17:32→21:23)
[2021-10-17] MEDS: Lidocaine 5% Patch TD SCH (17:32)
[2021-10-17] MEDS: Rifaximin 550 MG TAB PO SCH (21:12)
[2021-10-18 04:06] LABS: #Basophils 0.1 10x3/uL (0.0-0.2); #Eosinphils 0.2 10x3/uL (0.0-0.5); #Monocytes 0.6 10x3/uL (0.0-1.1); #Neutrophils 3.1 10x3/uL (1.5-8.4); %Basophils 1.5 % (0.0-2.0); %Eosinophils 3.5 % (0.0-6.0); %Monocytes 13.3 % (0.0-10.0); %Neutrophils 66.5 % (40.0-75.0); Hemoglobin 12.7 g/dL (12.0-15.5); Mean Corpuscular HGB CONC 33.7 g/dL (32.0-36.0); Mean Corpuscular Hemoglobin 30.8 pg (27.0-33.0); Mean Corpuscular Volume 91.5 fl (81.6-98.3); Mean Platelet Volume 13.1 fl (7.4-10.4); Platelet Count 36 10x3/uL (150-450); RBC Distribution Width 15.2 % (11.5-14.5); Red Blood Cell (RBC) Count 4.12 10x6/uL (3.90-5.03); White Blood Cell (WBC) Count 4.6 10x3/uL (3.5-10.5)
[2021-10-18 04:22] LABS: Chloride 104 mmol/L (98-107); Potassium 3.8 mmol/L (3.5-5.1); Sodium 139 mmol/L (136-145)
[2021-10-18 04:23] LABS: Anion Gap 15 mmol/L (10-20); BUN (Urea Nitrogen) 16 mg/dL (9.8-20.1); Calc. Creatinine Clearance 81 mL/min (70-130); Calcium 7.9 mg/dL (7.8-10.44); Carbon Dioxide 24 mmol/L (22-29); Glucose 414 mg/dL (70-105); Magnesium 1.3 mg/dL (1.6-2.6)
[2021-10-18] MEDS: Transdermal Patch Removal TOP SCH (04:55)
[2021-10-18] MEDS: HumaLOG 300 UNITS/3 ML VIAL SC PRN ×4 (06:36→20:39)
[2021-10-18] MEDS: Magnesium 2 GM/50 ML(in water) 2 GM in Premix Bag 1 BAG IVPB SCH ×2 (10:48→15:31)
[2021-10-18] MEDS: HYDROcodone/Acetaminophen 5/325 mg Tablet PO PRN (10:48)
[2021-10-18] MEDS: Rifaximin 550 MG TAB PO SCH ×2 (10:49→20:38)
[2021-10-18] MEDS: Furosemide 40 MG TAB PO SCH (10:49)
[2021-10-18] MEDS: Spironolactone 25 MG TAB PO SCH (10:49)
[2021-10-18] MEDS: Lidocaine 5% Patch TD SCH (15:30)
[2021-10-18] MEDS: traMADol HCl 50 MG TAB PO PRN ×2 (15:31→20:39)
[2021-10-18] MEDS: Magnesium Oxide 400 MG TAB PO SCH (20:39)
[2021-10-19] MEDS: Transdermal Patch Removal TOP SCH (03:45)
[2021-10-19] MEDS: HumaLOG 300 UNITS/3 ML VIAL SC PRN ×4 (05:57→20:57)
[2021-10-19 06:09] LABS: #Basophils 0.1 10x3/uL (0.0-0.2); #Eosinphils 0.2 10x3/uL (0.0-0.5); #Monocytes 0.7 10x3/uL (0.0-1.1); #Neutrophils 3.3 10x3/uL (1.5-8.4); %Basophils 1.8 % (0.0-2.0); %Eosinophils 3.3 % (0.0-6.0); %Lymphocytes 15.6 % (18.0-47.0); %Neutrophils 64.9 % (40.0-75.0); Hemoglobin 13.6 g/dL (12.0-15.5); Mean Corpuscular HGB CONC 34.3 g/dL (32.0-36.0); Mean Corpuscular Hemoglobin 31.6 pg (27.0-33.0); Mean Corpuscular Volume 91.9 fl (81.6-98.3); Platelet Count 38 10x3/uL (150-450); RBC Distribution Width 15.1 % (11.5-14.5); Red Blood Cell (RBC) Count 4.31 10x6/uL (3.90-5.03); White Blood Cell (WBC) Count 5.1 10x3/uL (3.5-10.5)
[2021-10-19 06:11] LABS: ALT (SGPT) 37 U/L (8-55); AST (SGOT) 46 U/L (5-34); Albumin 2.8 g/dL (3.5-5.0); Alkaline Phosphatase 196 U/L (40-110); Anion Gap 16 mmol/L (10-20); BUN (Urea Nitrogen) 11 mg/dL (9.8-20.1); Calc. Creatinine Clearance 83 mL/min (70-130); Calcium 8.5 mg/dL (7.8-10.44); Carbon Dioxide 24 mmol/L (22-29); Chloride 104 mmol/L (98-107); Globulin 3.3 g/dL (2.4-3.5); Glucose 352 mg/dL (70-105); Magnesium 1.5 mg/dL (1.6-2.6); Potassium 3.8 mmol/L (3.5-5.1); Protein, Total 6.1 g/dL (6.0-8.3); Sodium 140 mmol/L (136-145)
[2021-10-19] MEDS: traMADol HCl 50 MG TAB PO PRN (09:07)
[2021-10-19] MEDS: Magnesium Oxide 400 MG TAB PO SCH ×2 (09:08→20:45)
[2021-10-19] MEDS: Rifaximin 550 MG TAB PO SCH ×2 (09:09→20:44)
[2021-10-19] MEDS: Spironolactone 25 MG TAB PO SCH (09:09)
[2021-10-19] MEDS: Furosemide 40 MG TAB PO SCH (09:09)
[2021-10-19] MEDS: Lantus 1000 UNITS/10 ML VIAL SC SCH (09:12)
[2021-10-19] MEDS: Acetaminophen 325 MG TAB PO PRN (15:37)
[2021-10-19] MEDS: Lidocaine 5% Patch TD SCH (17:07)
[2021-10-20] MEDS: Transdermal Patch Removal TOP SCH (04:15)
[2021-10-20 05:24] VITALS: BMI 33.7
[2021-10-20] MEDS: HumaLOG 300 UNITS/3 ML VIAL SC PRN (05:26)
[2021-10-20] MEDS: Spironolactone 25 MG TAB PO SCH (09:04)
[2021-10-20] MEDS: Magnesium Oxide 400 MG TAB PO SCH (09:04)
[2021-10-20] MEDS: Rifaximin 550 MG TAB PO SCH (09:04)
[2021-10-20] MEDS: Furosemide 40 MG TAB PO SCH (09:04)
[2021-10-20] MEDS: Lantus 1000 UNITS/10 ML VIAL SC SCH (09:05)
[2021-10-20 12:05] VITALS: BP 157/96; TEMP 98.8
== END 2021-10-20 12:35 | disposition home or self-care (01) | DRG 442 ==
LOC: CSHERS 14:24 → CSHICU 17:59 → CSHTELE 10-17 13:42
PROVIDERS: ADMIT Hospitalist; ATTEND Family Medicine
PROC: 4A10X4Z Monitoring of Central Nervous Electrical Activity, External Approach (ICD-10-PCS; principal; 2021-10-19)
DX: K72.00 Acute and subacute hepatic failure without coma (principal); K76.6 Portal hypertension; I50.42 Chronic combined systolic (congestive) and diastolic (congestive) heart failure; F17.210 Nicotine dependence, cigarettes, uncomplicated; K70.31 Alcoholic cirrhosis of liver with ascites; E11.65 Type 2 diabetes mellitus with hyperglycemia; E78.00 Pure hypercholesterolemia, unspecified; F32.A Depression, unspecified; G89.29 Other chronic pain; Z20.822 Contact with and (suspected) exposure to COVID-19; Z88.8 Allergy status to other drugs, medicaments and biological substances; Z79.4 Long term (current) use of insulin; Z79.899 Other long term (current) drug therapy; Z90.710 Acquired absence of both cervix and uterus; Z95.810 Presence of automatic (implantable) cardiac defibrillator; Z90.49 Acquired absence of other specified parts of digestive tract; Z91.14 Patient's other noncompliance with medication regimen
CPT/HCPCS: 36415; 36416; 36600; 51702; 70450; 71045; 76705; 80048; 80053; 80306; 80307; 81003; 82140; 82805; 83735; 84146; 84484; 85025; 85027; 85610; 94760; 95819; 95957; 96360; 96361; J1815; J1940; J2270; J3475; U0002

== ENCOUNTER 2022-05-22 13:39 | Inpatient (IN) | payer MEDICARE, MEDICAID ==
[2022-05-22 14:35] LABS: #Basophils 0.2 10x3/uL (0.0-0.2); #Eosinphils 0.3 10x3/uL (0.0-0.5); #Monocytes 1.1 10x3/uL (0.0-1.1); #Neutrophils 6.2 10x3/uL (1.5-8.4); %Basophils 1.8 % (0.0-2.0); %Eosinophils 3.5 % (0.0-6.0); %Monocytes 12.4 % (0.0-10.0); %Neutrophils 67.8 % (40.0-75.0); Hemoglobin 14.3 g/dL (12.0-15.5); Mean Corpuscular Hemoglobin 31.1 pg (27.0-33.0); Mean Corpuscular Volume 91.3 fl (81.6-98.3); Mean Platelet Volume 12.7 fl (7.4-10.4); Platelet Count 57 10x3/uL (150-450); RBC Distribution Width 15.1 % (11.5-14.5); White Blood Cell (WBC) Count 9.2 10x3/uL (3.5-10.5)
[2022-05-22 14:49] LABS: Bilirubin Neg (Negative); Blood, Urine 50 (Negative); Clarity Clear (Clear); Glucose, Urine (Dipstick) 50 mg/dL (Negative); Ketone, Urine Negative (Negative); Leukocyte 25 (Negative); Nitrite Negative (Negative); Protein, Urine (Dipstick) 15 mg/dl (Neg-Trace); Specific Gravity, Urine 1.015 (1.005-1.030); Urobilinogen Normal mg/dL (Less than 2)
[2022-05-22 14:50] LABS: ALT (SGPT) 29 U/L (8-55); AST (SGOT) 76 U/L (5-34); Albumin 2.6 g/dL (3.5-5.0); Alkaline Phosphatase 198 U/L (40-110); Anion Gap 15 mmol/L (10-20); BUN (Urea Nitrogen) 21 mg/dL (9.8-20.1); Bilirubin, Total 3.4 mg/dL (0.2-1.2); Calc. Creatinine Clearance 0 mL/min (70-130); Calcium 8.6 mg/dL (7.8-10.44); Carbon Dioxide 22 mmol/L (22-29); Chloride 104 mmol/L (98-107); Estimated GFR 39; Globulin 3.7 g/dL (2.4-3.5); Glucose 246 mg/dL (70-105); Lipase 40 U/L (8-78); Potassium 3.2 mmol/L (3.5-5.1); Protein, Total 6.3 g/dL (6.0-8.3); Sodium 138 mmol/L (136-145)
[2022-05-22 14:54] LABS: INR-International Normal Ratio 1.3; PTT 34.3 sec (22.0-33.0); Prothrombin Time 13.5 sec (9.5-12.1)
[2022-05-22 15:02] LABS: Bacteria/HPF 3+ HPF (None Seen); Squamous Epithelial 0-3 HPF (0-3)
[2022-05-22 15:47] LABS: SARS-CoV-2 NAA Rapid Test Not Detected (NotDetected)
[2022-05-22 18:33] LABS: Troponin I 0.046 ng/mL (< 0.028)
[2022-05-22 18:34] LABS: Troponin I 0.046 ng/mL (< 0.028)
[2022-05-23] MEDS ORDERED: Dextrose 5% in Water 1,000 ML IV PRN (00:38)
[2022-05-23] MEDS ORDERED: Dextrose 50% Abboject 50 ML SYRINGE SLOW IVP PRN (00:38)
[2022-05-23] MEDS ORDERED: cefTRIAXone\\ROCEPHIN 2 GM VIAL ONE (00:40)
[2022-05-23] MEDS ORDERED: Potassium Chloride 20 MEQ/100 ML PREMIX BAG ONE ×2 (00:41→04:22)
[2022-05-23] MEDS ORDERED: cefTRIAXone\\ROCEPHIN 2 GM in Sodium Chloride 0.9% 100 ML IVPB SCH (01:00)
[2022-05-23] MEDS: Sodium Chloride 0.9% 1,000 ML IV SCH ×2 (01:12→15:20)
[2022-05-23 01:23] LABS: #Basophils 0.1 10x3/uL (0.0-0.2); #Eosinphils 0.2 10x3/uL (0.0-0.5); #Monocytes 0.9 10x3/uL (0.0-1.1); #Neutrophils 4.5 10x3/uL (1.5-8.4); %Basophils 1.6 % (0.0-2.0); %Eosinophils 3.6 % (0.0-6.0); %Lymphocytes 13.6 % (18.0-47.0); %Monocytes 13.2 % (0.0-10.0); %Neutrophils 67.4 % (40.0-75.0); Hemoglobin 13.1 g/dL (12.0-15.5); Mean Corpuscular Hemoglobin 31.8 pg (27.0-33.0); Mean Corpuscular Volume 90.8 fl (81.6-98.3); Mean Platelet Volume 13.2 fl (7.4-10.4); Platelet Count 46 10x3/uL (150-450); RBC Distribution Width 15.2 % (11.5-14.5); Red Blood Cell (RBC) Count 4.12 10x6/uL (3.90-5.03); White Blood Cell (WBC) Count 6.7 10x3/uL (3.5-10.5)
[2022-05-23 01:26] LABS: Anion Gap 14 mmol/L (10-20); BUN (Urea Nitrogen) 21 mg/dL (9.8-20.1); Calc. Creatinine Clearance 0 mL/min (70-130); Calcium 8.5 mg/dL (7.8-10.44); Carbon Dioxide 22 mmol/L (22-29); Chloride 106 mmol/L (98-107); Estimated GFR 48; Glucose 176 mg/dL (70-105); Magnesium 1.4 mg/dL (1.6-2.6); Sodium 139 mmol/L (136-145)
[2022-05-23] MEDS: Potassium Chloride 20 MEQ in Premix Bag 1 BAG IVPB SCH ×2 (02:23→04:31)
[2022-05-23] MEDS: Rifaximin 550 MG TAB PO SCH ×2 (10:22→22:06)
[2022-05-23] MEDS: Spironolactone 25 MG TAB PO SCH ×2 (10:22→18:03)
[2022-05-23] MEDS ORDERED: Pantoprazole 40 MG VIAL ONE (10:39)
[2022-05-23] MEDS: Lantus 1000 UNITS/10 ML VIAL SC SCH (10:54)
[2022-05-23] MEDS: Pantoprazole 40 MG VIAL IVP SCH ×2 (10:55→22:05)
[2022-05-23] MEDS ORDERED: Sodium Bicarbonate 2.5 MEQ/5 ML VIAL ONE (11:42)
[2022-05-23] MEDS ORDERED: Lidocaine 1% PF 5 ML VIAL ONE (11:42)
[2022-05-23 13:26] LABS: BF Color Yellow; Body Fluid Source Ascites Body Fluid; Clarity Clear (Clear); Tube # EDTA
[2022-05-23 14:13] LABS: BF Segmented Neutrophils 22 %; Cell Count Non Hematic 45 %; Lymphocytes 32 %
[2022-05-23] MEDS ORDERED: Piperacillin/Tazobactam 3.375 GM in Sodium Chloride 0.9% 100 ML IVPB SCH ×4 (14:30→21:00)
[2022-05-23] MEDS ORDERED: Albumin 25% 25 GM/100 ML BOT IVPB SCH ×2 (15:00)
[2022-05-23 15:49] LABS: Anion Gap 13 mmol/L (10-20); BUN (Urea Nitrogen) 22 mg/dL (9.8-20.1); Calc. Creatinine Clearance 0 mL/min (70-130); Calcium 8.2 mg/dL (7.8-10.44); Carbon Dioxide 22 mmol/L (22-29); Chloride 108 mmol/L (98-107); Estimated GFR 46; Glucose 244 mg/dL (70-105); Magnesium 1.4 mg/dL (1.6-2.6); Potassium 3.2 mmol/L (3.5-5.1); Sodium 140 mmol/L (136-145)
[2022-05-23] MEDS ORDERED: Magnesium 2 GM/50 ML(in water) 2 GM in Premix Bag 1 BAG IVPB SCH (16:00)
[2022-05-23] MEDS: Albumin 25% 25 GM/100 ML BOT IVPB SCH ×2 (18:04→23:47)
[2022-05-23 20:41] VITALS: BMI 38.6
[2022-05-23] MEDS ORDERED: HumaLOG 300 UNITS/3 ML VIAL SC PRN (22:29)
[2022-05-23 23:18] LABS: Anion Gap 13 mmol/L (10-20); BUN (Urea Nitrogen) 21 mg/dL (9.8-20.1); Calc. Creatinine Clearance 65 mL/min (70-130); Calcium 8.2 mg/dL (7.8-10.44); Carbon Dioxide 23 mmol/L (22-29); Chloride 108 mmol/L (98-107); Estimated GFR 40; Glucose 246 mg/dL (70-105); Magnesium 1.7 mg/dL (1.6-2.6); Potassium 3.1 mmol/L (3.5-5.1); Sodium 141 mmol/L (136-145)
[2022-05-23] MEDS ORDERED: Potassium Chloride 20 MEQ TAB PO SCH (23:59)
[2022-05-24] MEDS: Sodium Chloride 0.9% 1,000 ML IV SCH ×2 (03:29→18:12)
[2022-05-24] MEDS: HumaLOG 300 UNITS/3 ML VIAL SC PRN ×3 (03:51→18:13)
[2022-05-24] MEDS ORDERED: Piperacillin/Tazobactam 3.375 GM in Sodium Chloride 0.9% 100 ML IVPB SCH (04:00)
[2022-05-24 04:53] LABS: #Basophils 0.1 10x3/uL (0.0-0.2); #Eosinphils 0.1 10x3/uL (0.0-0.5); #Monocytes 0.8 10x3/uL (0.0-1.1); #Neutrophils 3.8 10x3/uL (1.5-8.4); %Basophils 1.3 % (0.0-2.0); %Eosinophils 2.3 % (0.0-6.0); %Lymphocytes 14.3 % (18.0-47.0); %Monocytes 14.1 % (0.0-10.0); %Neutrophils 67.5 % (40.0-75.0); Hemoglobin 11.3 g/dL (12.0-15.5); Mean Corpuscular HGB CONC 35.2 g/dL (32.0-36.0); Mean Corpuscular Hemoglobin 31.8 pg (27.0-33.0); Mean Corpuscular Volume 90.4 fl (81.6-98.3); Mean Platelet Volume 12.2 fl (7.4-10.4); Platelet Count 35 10x3/uL (150-450); RBC Distribution Width 15.5 % (11.5-14.5); Red Blood Cell (RBC) Count 3.55 10x6/uL (3.90-5.03); White Blood Cell (WBC) Count 5.6 10x3/uL (3.5-10.5)
[2022-05-24 04:56] LABS: ALT (SGPT) 26 U/L (8-55); AST (SGOT) 79 U/L (5-34); Albumin 2.5 g/dL (3.5-5.0); Alkaline Phosphatase 135 U/L (40-110); Anion Gap 12 mmol/L (10-20); BUN (Urea Nitrogen) 21 mg/dL (9.8-20.1); Bilirubin, Total 2.5 mg/dL (0.2-1.2); Calc. Creatinine Clearance 70 mL/min (70-130); Calcium 8.1 mg/dL (7.8-10.44); Carbon Dioxide 22 mmol/L (22-29); Chloride 109 mmol/L (98-107); Estimated GFR 44; Globulin 2.7 g/dL (2.4-3.5); Glucose 233 mg/dL (70-105); Magnesium 1.8 mg/dL (1.6-2.6); Phosphorus 2.8 mg/dL (2.3-4.7); Potassium 3.4 mmol/L (3.5-5.1); Protein, Total 5.2 g/dL (6.0-8.3); Sodium 140 mmol/L (136-145)
[2022-05-24] MEDS: Albumin 25% 25 GM/100 ML BOT IVPB SCH ×2 (05:41→12:52)
[2022-05-24] MEDS: Lantus 1000 UNITS/10 ML VIAL SC SCH (08:28)
[2022-05-24] MEDS: Pantoprazole 40 MG VIAL IVP SCH ×2 (08:28→21:09)
[2022-05-24] MEDS: Spironolactone 25 MG TAB PO SCH ×2 (08:28→18:12)
[2022-05-24] MEDS: Rifaximin 550 MG TAB PO SCH ×2 (08:28→21:09)
[2022-05-24] MEDS: traMADol HCl 50 MG TAB PO PRN ×2 (12:07→21:10)
[2022-05-24] MEDS ORDERED: Lantus 1000 UNITS/10 ML VIAL SC SCH (21:00)
[2022-05-24] MEDS: DULoxetine 30 MG CAP PO SCH (21:08)
[2022-05-24] MEDS: Pregabalin 50 MG CAP PO SCH (21:09)
[2022-05-25] MEDS: traMADol HCl 50 MG TAB PO PRN ×4 (05:01→23:44)
[2022-05-25] MEDS: Sodium Chloride 0.9% 1,000 ML IV SCH (06:03)
[2022-05-25] MEDS: HumaLOG 300 UNITS/3 ML VIAL SC PRN ×2 (06:10→17:12)
[2022-05-25] MEDS: DULoxetine 30 MG CAP PO SCH (08:43)
[2022-05-25] MEDS: Spironolactone 25 MG TAB PO SCH ×2 (08:43→17:10)
[2022-05-25] MEDS: Rifaximin 550 MG TAB PO SCH ×2 (08:43→20:55)
[2022-05-25] MEDS: Pregabalin 50 MG CAP PO SCH ×2 (08:44→20:56)
[2022-05-25] MEDS: Pantoprazole 40 MG VIAL IVP SCH (08:45)
[2022-05-25] MEDS: Lantus 1000 UNITS/10 ML VIAL SC SCH (11:24)
[2022-05-25 11:52] LABS: ALT (SGPT) 29 U/L (8-55); AST (SGOT) 67 U/L (5-34); Albumin 2.8 g/dL (3.5-5.0); Alkaline Phosphatase 165 U/L (40-110); Anion Gap 11 mmol/L (10-20); BUN (Urea Nitrogen) 16 mg/dL (9.8-20.1); Bilirubin, Total 2.6 mg/dL (0.2-1.2); Calc. Creatinine Clearance 71 mL/min (70-130); Calcium 7.8 mg/dL (7.8-10.44); Carbon Dioxide 23 mmol/L (22-29); Chloride 108 mmol/L (98-107); Estimated GFR 45; Globulin 2.7 g/dL (2.4-3.5); Glucose 353 mg/dL (70-105); Potassium 3.5 mmol/L (3.5-5.1); Protein, Total 5.5 g/dL (6.0-8.3); Sodium 138 mmol/L (136-145)
[2022-05-25] MEDS ORDERED: PREGABALIN 200 MG PO SCH (15:00)
[2022-05-25] MEDS: busPIRone HCl 15 MG TAB PO SCH (20:56)
[2022-05-25] MEDS ORDERED: Lantus 1000 UNITS/10 ML VIAL SC SCH (21:00)
[2022-05-26 04:42] LABS: ALT (SGPT) 27 U/L (8-55); AST (SGOT) 56 U/L (5-34); Albumin 2.5 g/dL (3.5-5.0); Alkaline Phosphatase 179 U/L (40-110); Anion Gap 10 mmol/L (10-20); BUN (Urea Nitrogen) 16 mg/dL (9.8-20.1); Bilirubin, Total 2.6 mg/dL (0.2-1.2); Calc. Creatinine Clearance 88 mL/min (70-130); Calcium 7.8 mg/dL (7.8-10.44); Carbon Dioxide 22 mmol/L (22-29); Chloride 108 mmol/L (98-107); Estimated GFR 58; Globulin 2.8 g/dL (2.4-3.5); Glucose 297 mg/dL (70-105); Potassium 3.9 mmol/L (3.5-5.1); Protein, Total 5.3 g/dL (6.0-8.3); Sodium 136 mmol/L (136-145)
[2022-05-26] MEDS ORDERED: Furosemide 40 MG TAB PO SCH (09:00)
[2022-05-26] MEDS ORDERED: Ferrous Sulfate 325 MG TAB PO SCH (09:00)
[2022-05-26] MEDS ORDERED: FLUoxetine HCl 20 MG CAP PO SCH (09:00)
[2022-05-26] MEDS: busPIRone HCl 15 MG TAB PO SCH (10:26)
[2022-05-26] MEDS: Rifaximin 550 MG TAB PO SCH (10:26)
[2022-05-26] MEDS: Pregabalin 50 MG CAP PO SCH (10:27)
[2022-05-26] MEDS: Spironolactone 25 MG TAB PO SCH ×2 (10:27→17:23)
[2022-05-26] MEDS: Lantus 1000 UNITS/10 ML VIAL SC SCH (10:28)
[2022-05-26 15:35] VITALS: BP 114/55; TEMP 98.3
== END 2022-05-26 17:25 | disposition home or self-care (01) | DRG 441 ==
LOC: CSHERS 13:39 → CSHERHOLD 19:49 → CSHTELE 05-23 13:16
PROVIDERS: ADMIT Family Medicine; ATTEND Family Medicine
PROC: 0W9G3ZZ Drainage of Peritoneal Cavity, Percutaneous Approach (ICD-10-PCS; principal; 2022-05-23)
PROC: 30233J1 Transfusion of Nonautologous Serum Albumin into Peripheral Vein, Percutaneous Approach (ICD-10-PCS; 2022-05-23)
DX: K76.82 Hepatic encephalopathy (principal); J96.01 Acute respiratory failure with hypoxia; K65.2 Spontaneous bacterial peritonitis; K76.6 Portal hypertension; N30.00 Acute cystitis without hematuria; I42.8 Other cardiomyopathies; I50.42 Chronic combined systolic (congestive) and diastolic (congestive) heart failure; K70.31 Alcoholic cirrhosis of liver with ascites; E89.0 Postprocedural hypothyroidism; E87.6 Hypokalemia; E11.22 Type 2 diabetes mellitus with diabetic chronic kidney disease; N18.9 Chronic kidney disease, unspecified; E83.42 Hypomagnesemia; Z79.4 Long term (current) use of insulin; Z95.810 Presence of automatic (implantable) cardiac defibrillator; Z90.710 Acquired absence of both cervix and uterus; Z90.89 Acquired absence of other organs; Z88.8 Allergy status to other drugs, medicaments and biological substances; Z79.899 Other long term (current) drug therapy; Z20.822 Contact with and (suspected) exposure to COVID-19
CPT/HCPCS: 36415; 36416; 49083; 70450; 71045; 80048; 80053; 81003; 81015; 82140; 82553; 83690; 83735; 83880; 84100; 84443; 84484; 85025; 85610; 85730; 87040; 87070; 87077; 87086; 87186; 87205; 89051; 93005; 93010; 94760; C9113; J0696; J1650; J1815; J1956; J2543; J3475; J3480; J3490; J7050; P9047

== ENCOUNTER 2022-08-22 07:01 | Inpatient (IN) | payer MEDICARE, MEDICAID ==
[2022-08-22 07:38] LABS: #Basophils 0.1 10x3/uL (0.0-0.2); #Eosinphils 0.3 10x3/uL (0.0-0.5); #Monocytes 0.8 10x3/uL (0.0-1.1); #Neutrophils 5.9 10x3/uL (1.5-8.4); %Basophils 1.4 % (0.0-2.0); %Eosinophils 3.1 % (0.0-6.0); %Monocytes 9.7 % (0.0-10.0); %Neutrophils 73.3 % (40.0-75.0); Hemoglobin 13.9 g/dL (12.0-15.5); Mean Corpuscular HGB CONC 34.7 g/dL (32.0-36.0); Mean Corpuscular Volume 89.3 fl (81.6-98.3); RBC Distribution Width 14.2 % (11.5-14.5); Red Blood Cell (RBC) Count 4.49 10x6/uL (3.90-5.03); White Blood Cell (WBC) Count 8.1 10x3/uL (3.5-10.5)
[2022-08-22 07:51] LABS: ALT (SGPT) 26 U/L (8-55); AST (SGOT) 34 U/L (5-34); Albumin 2.9 g/dL (3.5-5.0); Alkaline Phosphatase 304 U/L (40-110); Anion Gap 19 mmol/L (10-20); BUN (Urea Nitrogen) 27 mg/dL (9.8-20.1); Bilirubin, Total 2.6 mg/dL (0.2-1.2); Calc. Creatinine Clearance 0 mL/min (70-130); Calcium 9.3 mg/dL (7.8-10.44); Carbon Dioxide 20 mmol/L (22-29); Chloride 94 mmol/L (98-107); Estimated GFR 26; Globulin 3.4 g/dL (2.4-3.5); Lipase 92 U/L (8-78); Potassium 4.3 mmol/L (3.5-5.1); Protein, Total 6.3 g/dL (6.0-8.3); Sodium 129 mmol/L (136-145)
[2022-08-22 07:55] LABS: Platelet Count 31 10x3/uL (150-450); Platelet Morphology Comment Appears Decreased; RBC Morphology Normal
[2022-08-22 07:56] LABS: Acetaminophen Less than 10.0 mcg/mL (10.0-30.0); Alcohol Less than 10 mg/dL (Less than 10); CK (CPK) 162 U/L (29-168); Salicylate Less than 8.0 mg/dL (15.0-30.0)
[2022-08-22 08:03] LABS: Glucose 729 mg/dL (70-105)
[2022-08-22] MEDS ORDERED: Potassium Chloride 20 MEQ TAB ONE (08:17)
[2022-08-22] MEDS ORDERED: INSULIN REGULAR IN 0.9 % NACL 100 UNITS/100 ML BAG ONE (08:17)
[2022-08-22] MEDS ORDERED: traMADol HCl 50 MG TAB ONE (09:26)
[2022-08-22] MEDS ORDERED: Ondansetron ODT 4 MG TAB PO PRN (11:04)
[2022-08-22] MEDS ORDERED: Ondansetron PF 4 MG/2 ML Vial IVP PRN (11:04)
[2022-08-22] MEDS ORDERED: Bisacodyl 5 MG TAB PO PRN (11:04)
[2022-08-22] MEDS ORDERED: Acetaminophen 650 MG Suppository PR PRN (11:04)
[2022-08-22] MEDS ORDERED: HUMULIN R 100 UNITS in Sodium Chloride 0.9% 100 ML IVPB SCH (11:15)
[2022-08-22] MEDS ORDERED: Sodium Chloride 0.9% 1,000 ML IV SCH (11:15)
[2022-08-22 11:17] LABS: Lactic Acid 3.4 mmol/L (0.5-2.2)
[2022-08-22] MEDS ORDERED: INSULIN REGULAR IN 0.9 % NACL 100 UNITS in Premix Bag 1 BAG IVPB SCH (12:00)
[2022-08-22 13:05] LABS: Anion Gap 14 mmol/L (10-20); BUN (Urea Nitrogen) 26 mg/dL (9.8-20.1); Calc. Creatinine Clearance 0 mL/min (70-130); Carbon Dioxide 21 mmol/L (22-29); Chloride 101 mmol/L (98-107); Estimated GFR 30; Potassium 3.7 mmol/L (3.5-5.1); Sodium 132 mmol/L (136-145)
[2022-08-22 13:08] LABS: Glucose 517 mg/dL (70-105)
[2022-08-22 13:44] LABS: Actual Bicarbonate (HCO3a) 23.7 mEq/L (22-28); Base Excess (BEa) -0.2 mEq/L (-2.0 to +3.0); CO2 Tension 36.4 mmHg (35.0-45.0); Calcium, Ionized (arterial) 1.18 mmol/L (1.12-1.30); Hematocrit-ABG 41 % (36.0-47.0); Hemoglobin (Hb) 13.9 g/dL (12.0-16.0); Potassium - ABG Lab 3.76 mmol/L (3.70-5.30); Puncture Site RRA; pH, Arterial 7.432 (7.35-7.45)
[2022-08-22 15:14] LABS: Bilirubin Neg (Negative); Blood, Urine Negative (Negative); Clarity Clear (Clear); Glucose, Urine (Dipstick) >=1000 mg/dL (Negative); Ketone, Urine Negative (Negative); Leukocyte Negative (Negative); Nitrite Negative (Negative); Protein, Urine (Dipstick) 15 mg/dl (Neg-Trace); pH, Urine 6.5 (5.0-9.0)
[2022-08-22 15:23] LABS: Amphetamine Not Detected (NotDetected); Barbiturates Screen Not Detected (NotDetected); Benzodiazepine Screen Not Detected (NotDetected); Cocaine Metabolite Screen Not Detected (NotDetected); Methadone Not Detected (NotDetected); Methamphetamine Not Detected (NotDetected); Opiate Screen Not Detected (NotDetected); Oxycodone Screen Not Detected (NotDetected); Phencyclidine (PCP) Not Detected (NotDetected); THC/Cannabinoid Screen Not Detected (NotDetected); Tricyclic Screen Not Detected (NotDetected)
[2022-08-22] MEDS ORDERED: Dextrose 5% in Water 1,000 ML IV PRN (15:48)
[2022-08-22] MEDS ORDERED: Dextrose 50% Abboject 50 ML SYRINGE SLOW IVP PRN (15:48)
[2022-08-22] MEDS ORDERED: HumaLOG 300 UNITS/3 ML VIAL SC PRN (15:48)
[2022-08-22] MEDS ORDERED: Lantus 1000 UNITS/10 ML VIAL SC SCH (17:00)
[2022-08-22 17:55] LABS: Anion Gap 15 mmol/L (10-20); BUN (Urea Nitrogen) 25 mg/dL (9.8-20.1); Calc. Creatinine Clearance 0 mL/min (70-130); Carbon Dioxide 19 mmol/L (22-29); Chloride 104 mmol/L (98-107); Estimated GFR 36; Glucose 281 mg/dL (70-105); Potassium 3.8 mmol/L (3.5-5.1); Sodium 134 mmol/L (136-145)
[2022-08-22 19:22] VITALS: BMI 33.5
[2022-08-22 22:05] LABS: Anion Gap 15 mmol/L (10-20); BUN (Urea Nitrogen) 26 mg/dL (9.8-20.1); Calc. Creatinine Clearance 51 mL/min (70-130); Calcium 8.9 mg/dL (7.8-10.44); Carbon Dioxide 20 mmol/L (22-29); Chloride 102 mmol/L (98-107); Estimated GFR 35; Glucose 347 mg/dL (70-105); Potassium 4.1 mmol/L (3.5-5.1); Sodium 133 mmol/L (136-145)
[2022-08-23] MEDS: guaiFENesin ER 600 MG TAB PO SCH ×3 (00:55→20:21)
[2022-08-23 05:21] LABS: #Basophils 0.1 10x3/uL (0.0-0.2); #Eosinphils 0.4 10x3/uL (0.0-0.5); #Monocytes 0.6 10x3/uL (0.0-1.1); #Neutrophils 4.4 10x3/uL (1.5-8.4); %Basophils 1.7 % (0.0-2.0); %Eosinophils 5.4 % (0.0-6.0); %Lymphocytes 16.1 % (18.0-47.0); %Monocytes 9.7 % (0.0-10.0); %Neutrophils 66.8 % (40.0-75.0); Hemoglobin 13.7 g/dL (12.0-15.5); Mean Corpuscular HGB CONC 34.9 g/dL (32.0-36.0); Mean Corpuscular Hemoglobin 31.2 pg (27.0-33.0); Mean Corpuscular Volume 89.3 fl (81.6-98.3); Mean Platelet Volume 14.7 fl (7.4-10.4); Platelet Count 29 10x3/uL (150-450); RBC Distribution Width 14.5 % (11.5-14.5); Red Blood Cell (RBC) Count 4.39 10x6/uL (3.90-5.03); White Blood Cell (WBC) Count 6.6 10x3/uL (3.5-10.5)
[2022-08-23 05:26] LABS: INR-International Normal Ratio 1.2; Prothrombin Time 12.9 sec (9.5-12.1)
[2022-08-23 05:31] LABS: ALT (SGPT) 27 U/L (8-55); AST (SGOT) 35 U/L (5-34); Albumin 2.8 g/dL (3.5-5.0); Alkaline Phosphatase 210 U/L (40-110); Anion Gap 16 mmol/L (10-20); BUN (Urea Nitrogen) 27 mg/dL (9.8-20.1); Bilirubin, Total 4.1 mg/dL (0.2-1.2); Calc. Creatinine Clearance 49 mL/min (70-130); Carbon Dioxide 19 mmol/L (22-29); Chloride 104 mmol/L (98-107); Estimated GFR 33; Globulin 3.1 g/dL (2.4-3.5); Glucose 313 mg/dL (70-105); Potassium 4.2 mmol/L (3.5-5.1); Protein, Total 5.9 g/dL (6.0-8.3); Sodium 135 mmol/L (136-145)
[2022-08-23 05:40] LABS: Anisocytosis SLIGHT = 6-15 cells (100X) (0-5/hpf)
[2022-08-23 05:41] LABS: Platelet Morphology Comment Appears Decreased
[2022-08-23] MEDS: HumaLOG 300 UNITS/3 ML VIAL SC PRN ×4 (06:16→20:23)
[2022-08-23] MEDS ORDERED: Lantus 1000 UNITS/10 ML VIAL SC SCH ×4 (09:00→21:00)
[2022-08-23] MEDS: Lactated Ringer's 1,000 ML IV SCH (09:19)
[2022-08-23] MEDS ORDERED: Acetaminophen 325 MG Suppository PR PRN (20:15)
[2022-08-23] MEDS: Rifaximin 550 MG TAB PO SCH (20:21)
[2022-08-23] MEDS: Propranolol 10 MG TAB PO SCH (20:21)
[2022-08-23] MEDS: traMADol HCl 50 MG TAB PO PRN (20:27)
[2022-08-24] MEDS: HumaLOG 300 UNITS/3 ML VIAL SC PRN (05:22)
[2022-08-24] MEDS: Lactated Ringer's 1,000 ML IV SCH ×2 (05:24→17:38)
[2022-08-24] MEDS: traMADol HCl 50 MG TAB PO PRN (05:34)
[2022-08-24 08:21] LABS: #Basophils 0.1 10x3/uL (0.0-0.2); #Eosinphils 0.4 10x3/uL (0.0-0.5); #Monocytes 0.9 10x3/uL (0.0-1.1); #Neutrophils 5.2 10x3/uL (1.5-8.4); %Basophils 1.4 % (0.0-2.0); %Eosinophils 4.9 % (0.0-6.0); %Lymphocytes 14.7 % (18.0-47.0); %Monocytes 11.6 % (0.0-10.0); %Neutrophils 66.9 % (40.0-75.0); Hemoglobin 13.1 g/dL (12.0-15.5); Mean Corpuscular HGB CONC 33.6 g/dL (32.0-36.0); Mean Corpuscular Hemoglobin 30.9 pg (27.0-33.0); Platelet Count 28 10x3/uL (150-450); RBC Distribution Width 14.9 % (11.5-14.5); Red Blood Cell (RBC) Count 4.24 10x6/uL (3.90-5.03); White Blood Cell (WBC) Count 7.7 10x3/uL (3.5-10.5)
[2022-08-24 08:38] LABS: Anion Gap 13 mmol/L (10-20); BUN (Urea Nitrogen) 31 mg/dL (9.8-20.1); Calc. Creatinine Clearance 47 mL/min (70-130); Calcium 8.3 mg/dL (7.8-10.44); Carbon Dioxide 19 mmol/L (22-29); Chloride 104 mmol/L (98-107); Estimated GFR 31; Glucose 333 mg/dL (70-105); Potassium 3.6 mmol/L (3.5-5.1); Sodium 132 mmol/L (136-145)
[2022-08-24 08:49] LABS: Eosinophils 5 % (0-10); Lymphocytes 13 % (21-51); Monocytes 7 % (0-10); Neutrophil 74 % (42-75)
[2022-08-24 08:50] LABS: Platelet Morphology Comment Appears Decreased
[2022-08-24 08:51] LABS: Diff Comment (RBC Morph SCRN) NORMAL; Reflex for Review?? YES
[2022-08-24] MEDS ORDERED: Lantus 1000 UNITS/10 ML VIAL SC SCH (09:00)
[2022-08-24] MEDS: Rifaximin 550 MG TAB PO SCH (12:48)
[2022-08-24] MEDS: Propranolol 10 MG TAB PO SCH (12:48)
[2022-08-24] MEDS: guaiFENesin ER 600 MG TAB PO SCH (12:48)
[2022-08-24 17:18] VITALS: BP 146/65; TEMP 97.6
[2022-08-24] MEDS ORDERED: busPIRone HCl 5 MG TAB PO SCH (21:00)
[2022-08-24] MEDS ORDERED: DULoxetine 30 MG CAP PO SCH (21:00)
== END 2022-08-24 19:35 | disposition home or self-care (01) | DRG 638 ==
LOC: CSHERS 07:01 → CSHERHOLD 19:10 → CSHTELE 23:02
PROVIDERS: ADMIT Internal Medicine; ATTEND Internal Medicine
PROC: 4A033R1 Measurement of Arterial Saturation, Peripheral, Percutaneous Approach (ICD-10-PCS; principal; 2022-08-22)
DX: E11.00 Type 2 diabetes mellitus with hyperosmolarity without nonketotic hyperglycemic-hyperosmolar coma (NKHHC) (principal); E87.1 Hypo-osmolality and hyponatremia; I50.42 Chronic combined systolic (congestive) and diastolic (congestive) heart failure; N17.9 Acute kidney failure, unspecified; I13.0 Hypertensive heart and chronic kidney disease with heart failure and stage 1 through stage 4 chronic kidney disease, or unspecified chronic kidney disease; F32.A Depression, unspecified; F17.210 Nicotine dependence, cigarettes, uncomplicated; K70.31 Alcoholic cirrhosis of liver with ascites; E78.5 Hyperlipidemia, unspecified; E78.00 Pure hypercholesterolemia, unspecified; K76.82 Hepatic encephalopathy; N18.30 Chronic kidney disease, stage 3 unspecified; E11.22 Type 2 diabetes mellitus with diabetic chronic kidney disease; Z88.8 Allergy status to other drugs, medicaments and biological substances; Z79.4 Long term (current) use of insulin; Z79.84 Long term (current) use of oral hypoglycemic drugs; Z79.899 Other long term (current) drug therapy; Z95.810 Presence of automatic (implantable) cardiac defibrillator; Z98.890 Other specified postprocedural states; Z91.148 Patient's other noncompliance with medication regimen for other reason
CPT/HCPCS: 36415; 36416; 36600; 70450; 71045; 76770; 80048; 80053; 80306; 80307; 81003; 82010; 82140; 82550; 82805; 83605; 83690; 83880; 83930; 84443; 84484; 85025; 85060; 85610; 87040; 93005; 94760; 94762; J1815; J7120

== ENCOUNTER 2022-10-30 04:06 | Inpatient (IN) | payer MEDICARE, MEDICAID ==
[2022-10-30 05:28] LABS: #Basophils 0.1 10x3/uL (0.0-0.2); #Eosinphils 0.2 10x3/uL (0.0-0.5); #Monocytes 0.7 10x3/uL (0.0-1.1); #Neutrophils 12.2 10x3/uL (1.5-8.4); %Basophils 0.6 % (0.0-2.0); %Eosinophils 1.5 % (0.0-6.0); %Lymphocytes 4.4 % (18.0-47.0); %Monocytes 5.2 % (0.0-10.0); %Neutrophils 87.3 % (40.0-75.0); Hemoglobin 13.7 g/dL (12.0-15.5); Mean Corpuscular HGB CONC 33.8 g/dL (32.0-36.0); Mean Corpuscular Hemoglobin 31.5 pg (27.0-33.0); Mean Corpuscular Volume 93.1 fl (81.6-98.3); Platelet Count 56 10x3/uL (150-450); RBC Distribution Width 14.3 % (11.5-14.5); Red Blood Cell (RBC) Count 4.32 10x6/uL (3.90-5.03)
[2022-10-30 05:39] LABS: INR-International Normal Ratio 1.2; PTT 32.2 sec (22.0-33.0); Prothrombin Time 12.5 sec (9.5-12.1)
[2022-10-30 05:40] LABS: ALT (SGPT) 29 U/L (8-55); AST (SGOT) 37 U/L (5-34); Albumin 2.9 g/dL (3.4-4.8); Alkaline Phosphatase 217 U/L (40-110); Anion Gap 17 mmol/L (10-20); BUN (Urea Nitrogen) 33 mg/dL (9.8-20.1); Bilirubin, Total 2.5 mg/dL (0.2-1.2); Calc. Creatinine Clearance 0 mL/min (70-130); Calcium 8.2 mg/dL (7.8-10.44); Carbon Dioxide 17 mmol/L (23-31); Chloride 104 mmol/L (98-107); Estimated GFR 29; Globulin 3.6 g/dL (2.4-3.5); Glucose 241 mg/dL (80-115); Potassium 4.2 mmol/L (3.5-5.1); Protein, Total 6.5 g/dL (5.8-8.1); Sodium 134 mmol/L (136-145)
[2022-10-30] MEDS ORDERED: Ipratropium/Albuterol 3 ML NEB ONE (05:50)
[2022-10-30] MEDS ORDERED: Dextrose 50% Abboject 50 ML SYRINGE SLOW IVP PRN (05:55)
[2022-10-30] MEDS ORDERED: Dextrose 5% in Water 1,000 ML IV PRN (05:55)
[2022-10-30] MEDS ORDERED: Glucagon 1 MG/ML KIT IM PRN (05:55)
[2022-10-30] MEDS ORDERED: Cefepime 2 GM VIAL ONE (05:57)
[2022-10-30] MEDS ORDERED: Vancomycin 1.5 GRAM/300 ML BAG 1.5 GM in Premix Bag 1 BAG IVPB SCH (06:00)
[2022-10-30] MEDS ORDERED: traMADol HCl 50 MG TAB PO PRN (06:01)
[2022-10-30 08:09] LABS: Lactic Acid 2.8 mmol/L (0.5-2.2)
[2022-10-30] MEDS ORDERED: Lactated Ringer's 1,000 ML IV SCH (08:15)
[2022-10-30] MEDS ORDERED: Vancomycin 1 GM in Premix Bag 1 BAG IVPB SCH (09:00)
[2022-10-30] MEDS ORDERED: Heparin 5,000 UNITS/ML VIAL SC SCH (09:00)
[2022-10-30] MEDS ORDERED: Rifaximin 200 MG TAB PO SCH ×2 (10:00→12:00)
[2022-10-30] MEDS ORDERED: Ferrous Sulfate 325 MG TAB PO SCH ×2 (10:00→12:00)
[2022-10-30] MEDS ORDERED: busPIRone HCl 5 MG TAB PO SCH ×2 (10:00→12:00)
[2022-10-30] MEDS ORDERED: FLUoxetine HCl 20 MG CAP PO SCH ×2 (10:00→12:00)
[2022-10-30] MEDS ORDERED: Pregabalin 25 MG CAP PO SCH ×2 (10:00→12:00)
[2022-10-30] MEDS ORDERED: Rifaximin 550 MG TAB PO SCH (10:00)
[2022-10-30] MEDS ORDERED: Lantus 1000 UNITS/10 ML VIAL SC SCH ×3 (10:00→21:00)
[2022-10-30] MEDS: DULoxetine 30 MG CAP PO SCH ×2 (11:22→22:28)
[2022-10-30] MEDS: Rifaximin 200 MG TAB PO SCH ×3 (11:25→22:27)
[2022-10-30] MEDS: Propranolol 10 MG TAB PO SCH ×3 (11:28→23:06)
[2022-10-30] MEDS: Albumin 25% 25 GM/100 ML BOT IVPB SCH ×2 (11:35→18:22)
[2022-10-30] MEDS: Insulin Regular 300 UNITS/3 ML VIAL SC PRN ×3 (11:36→22:38)
[2022-10-30] MEDS: CEFAZOLIN 1 GM in Sodium Chloride 0.9% 100 ML IVPB SCH ×2 (14:54→23:00)
[2022-10-30] MEDS ORDERED: HYDROcodone/Acetaminophen 5/325 mg Tablet PO PRN (15:58)
[2022-10-30] MEDS: HYDROcodone/Acetaminophen 5/325 mg Tablet PO PRN ×2 (18:40→22:39)
[2022-10-30] MEDS ORDERED: Cefepime 2 GM in Sodium Chloride 0.9% 100 ML IVPB SCH (21:00)
[2022-10-30] MEDS ORDERED: Cefepime 1 GM in Sodium Chloride 0.9% 100 ML IVPB SCH (21:00)
[2022-10-30] MEDS: busPIRone HCl 5 MG TAB PO SCH (22:29)
[2022-10-30] MEDS: Pregabalin 25 MG CAP PO SCH (22:30)
[2022-10-31] MEDS: Albumin 25% 25 GM/100 ML BOT IVPB SCH ×5 (00:51→16:48)
[2022-10-31] MEDS: CEFAZOLIN 1 GM in Sodium Chloride 0.9% 100 ML IVPB SCH (06:06)
[2022-10-31 06:07] LABS: #Basophils 0.1 10x3/uL (0.0-0.2); #Eosinphils 0.4 10x3/uL (0.0-0.5); #Monocytes 1.1 10x3/uL (0.0-1.1); #Neutrophils 5.6 10x3/uL (1.5-8.4); %Basophils 0.8 % (0.0-2.0); %Eosinophils 4.4 % (0.0-6.0); %Lymphocytes 9.4 % (18.0-47.0); Hemoglobin 10.8 g/dL (12.0-15.5); Mean Corpuscular HGB CONC 34.1 g/dL (32.0-36.0); Mean Corpuscular Hemoglobin 31.9 pg (27.0-33.0); Mean Corpuscular Volume 93.6 fl (81.6-98.3); Mean Platelet Volume 12.9 fl (7.4-10.4); Platelet Count 42 10x3/uL (150-450); RBC Distribution Width 14.6 % (11.5-14.5); Red Blood Cell (RBC) Count 3.42 10x6/uL (3.90-5.03); White Blood Cell (WBC) Count 7.8 10x3/uL (3.5-10.5)
[2022-10-31 06:28] LABS: ALT (SGPT) 19 U/L (8-55); AST (SGOT) 24 U/L (5-34); Albumin 2.9 g/dL (3.4-4.8); Alkaline Phosphatase 146 U/L (40-110); Anion Gap 14 mmol/L (10-20); BUN (Urea Nitrogen) 45 mg/dL (9.8-20.1); Bilirubin, Total 1.7 mg/dL (0.2-1.2); Calc. Creatinine Clearance 29 mL/min (70-130); Calcium 8.1 mg/dL (7.8-10.44); Carbon Dioxide 16 mmol/L (23-31); Chloride 108 mmol/L (98-107); Estimated GFR 21; Globulin 2.6 g/dL (2.4-3.5); Glucose 193 mg/dL (80-115); Potassium 3.6 mmol/L (3.5-5.1); Protein, Total 5.5 g/dL (5.8-8.1); Sodium 134 mmol/L (136-145)
[2022-10-31] MEDS: Insulin Regular 300 UNITS/3 ML VIAL SC PRN ×3 (06:58→17:36)
[2022-10-31] MEDS ORDERED: Lantus 1000 UNITS/10 ML VIAL SC SCH (09:00)
[2022-10-31] MEDS ORDERED: VANCOMYCIN 1.25 GM/250 ML BAG 1.25 GM in Premix Bag 1 BAG IVPB SCH (09:00)
[2022-10-31 10:10] VITALS: BMI 29.0
[2022-10-31] MEDS: Pregabalin 25 MG CAP PO SCH ×2 (10:23→23:16)
[2022-10-31] MEDS: DULoxetine 30 MG CAP PO SCH ×2 (10:25→23:16)
[2022-10-31] MEDS: Rifaximin 200 MG TAB PO SCH ×3 (10:26→23:17)
[2022-10-31] MEDS: Ferrous Sulfate 325 MG TAB PO SCH (10:26)
[2022-10-31] MEDS: FLUoxetine HCl 20 MG CAP PO SCH (10:26)
[2022-10-31] MEDS: Propranolol 10 MG TAB PO SCH ×2 (10:27→14:11)
[2022-10-31] MEDS: busPIRone HCl 5 MG TAB PO SCH ×2 (10:29→23:18)
[2022-10-31] MEDS: HYDROcodone/Acetaminophen 5/325 mg Tablet PO PRN ×2 (10:46→23:18)
[2022-10-31] MEDS ORDERED: Albumin 25% 25 GM/100 ML BOT IVPB SCH ×2 (12:00→14:45)
[2022-10-31] MEDS ORDERED: Lidocaine 1% w/Epinephrine 1:200K 30 ML VIAL FS SCH (12:00)
[2022-10-31] MEDS ORDERED: Lidocaine 1% w/Epinephrine 1:100K 30 ML VIAL FS SCH (12:00)
[2022-10-31 12:13] LABS: Magnesium 1.7 mg/dL (1.6-2.6); Phosphorus 4.1 mg/dL (2.3-4.7)
[2022-10-31] MEDS: Cefepime 1 GM in Sodium Chloride 0.9% 100 ML IVPB SCH (13:01)
[2022-10-31] MEDS ORDERED: Vancomycin Dose by Levels Sliding Scale (Wt 71-99) FS SCH (14:00)
[2022-10-31] MEDS ORDERED: Vancomycin HCl 750 MG in Sodium Chloride 0.9% 250 ML 250 ML IVPB SCH (14:00)
[2022-10-31] MEDS: Sodium Bicarbonate Tab 325 MG TAB PO SCH ×2 (14:11→23:54)
[2022-10-31 15:49] LABS: BF Color Red; Body Fluid Source Ascites Body Fluid; Clarity Cloudy/Turbid (Clear); Tube # EDTA
[2022-10-31] MEDS ORDERED: Cosyntropin 250 MCG VIAL SLOW IVP SCH (16:30)
[2022-10-31] MEDS ORDERED: CEFAZOLIN 1 GM in Sodium Chloride 0.9% 100 ML IVPB SCH (18:00)
[2022-10-31 19:11] LABS: BF Segmented Neutrophils 6 %; Cell Count Non Hematic 71 %; Lymphocytes 23 %
[2022-10-31 19:57] LABS: Bilirubin Neg (Negative); Blood, Urine 10 (Negative); Clarity Slightly Cloudy (Clear); Glucose, Urine (Dipstick) Normal (Negative); Ketone, Urine 5 mg/dL (Negative); Leukocyte 25 (Negative); Nitrite Negative (Negative); Protein, Urine (Dipstick) 15 mg/dl (Neg-Trace); Specific Gravity, Urine 1.015 (1.005-1.030); Urobilinogen Normal mg/dL (Less than 2)
[2022-10-31 20:04] LABS: Bacteria/HPF Rare-Few HPF (None Seen); RBC/HPF 0-3 HPF (0-3); WBC/HPF 0-3 HPF (0-3)
[2022-10-31] MEDS ORDERED: Vancomycin 1 GM in Premix Bag 1 BAG IVPB SCH (21:00)
[2022-10-31] MEDS: metroNIDAZOLE 500 MG in Premix Bag 1 BAG IVPB SCH (22:00)
[2022-10-31] MEDS: Lantus 1000 UNITS/10 ML VIAL SC SCH (23:23)
[2022-11-01] MEDS: Cefepime 1 GM in Sodium Chloride 0.9% 100 ML IVPB SCH ×2 (00:36→12:59)
[2022-11-01 05:26] LABS: #Basophils 0.1 10x3/uL (0.0-0.2); #Eosinphils 0.4 10x3/uL (0.0-0.5); #Monocytes 0.9 10x3/uL (0.0-1.1); #Neutrophils 4.2 10x3/uL (1.5-8.4); %Basophils 1.3 % (0.0-2.0); %Eosinophils 6.1 % (0.0-6.0); %Lymphocytes 11.7 % (18.0-47.0); %Monocytes 13.7 % (0.0-10.0); %Neutrophils 66.6 % (40.0-75.0); Hemoglobin 10.8 g/dL (12.0-15.5); Mean Corpuscular HGB CONC 33.4 g/dL (32.0-36.0); Mean Corpuscular Hemoglobin 31.4 pg (27.0-33.0); Mean Corpuscular Volume 93.8 fl (81.6-98.3); Mean Platelet Volume 13.5 fl (7.4-10.4); Platelet Count 45 10x3/uL (150-450); RBC Distribution Width 14.5 % (11.5-14.5); Red Blood Cell (RBC) Count 3.41 10x6/uL (3.90-5.03); White Blood Cell (WBC) Count 6.1 10x3/uL (3.5-10.5)
[2022-11-01 05:32] LABS: INR-International Normal Ratio 1.2; PTT 37.9 sec (22.0-33.0); Prothrombin Time 13.2 sec (9.5-12.1)
[2022-11-01 05:34] LABS: ALT (SGPT) 13 U/L (8-55); AST (SGOT) 26 U/L (5-34); Albumin 3.4 g/dL (3.4-4.8); Alkaline Phosphatase 109 U/L (40-110); Anion Gap 16 mmol/L (10-20); BUN (Urea Nitrogen) 49 mg/dL (9.8-20.1); Bilirubin, Total 1.5 mg/dL (0.2-1.2); CRP (Inflammatory) 6.77 mg/dL (= or < 0.5); Calc. Creatinine Clearance 33 mL/min (70-130); Calcium 8.4 mg/dL (7.8-10.44); Carbon Dioxide 16 mmol/L (23-31); Chloride 109 mmol/L (98-107); Estimated GFR 24; Globulin 2.5 g/dL (2.4-3.5); Glucose 114 mg/dL (80-115); Potassium 3.7 mmol/L (3.5-5.1); Protein, Total 5.9 g/dL (5.8-8.1); Sodium 137 mmol/L (136-145)
[2022-11-01] MEDS: metroNIDAZOLE 500 MG in Premix Bag 1 BAG IVPB SCH ×3 (05:47→22:18)
[2022-11-01] MEDS: HYDROcodone/Acetaminophen 5/325 mg Tablet PO PRN ×4 (06:01→22:35)
[2022-11-01] MEDS: FLUoxetine HCl 20 MG CAP PO SCH (08:18)
[2022-11-01] MEDS: DULoxetine 30 MG CAP PO SCH ×2 (08:18→22:19)
[2022-11-01] MEDS: busPIRone HCl 5 MG TAB PO SCH ×2 (08:18→22:19)
[2022-11-01] MEDS: Pregabalin 25 MG CAP PO SCH ×2 (08:19→22:20)
[2022-11-01] MEDS: Rifaximin 200 MG TAB PO SCH ×3 (08:20→22:21)
[2022-11-01] MEDS: Sodium Bicarbonate Tab 325 MG TAB PO SCH ×3 (08:20→22:21)
[2022-11-01] MEDS: Lantus 1000 UNITS/10 ML VIAL SC SCH ×2 (08:21→22:36)
[2022-11-01] MEDS: Ferrous Sulfate 325 MG TAB PO SCH (08:21)
[2022-11-01] MEDS ORDERED: Spironolactone 25 MG TAB PO SCH (09:00)
[2022-11-01] MEDS: Insulin Regular 300 UNITS/3 ML VIAL SC PRN ×2 (13:00→17:13)
[2022-11-01 16:54] LABS: Vancomycin, Random 13.3 ug/mL (See Comment)
[2022-11-01] MEDS ORDERED: Vancomycin HCl 750 MG in Sodium Chloride 0.9% 250 ML 250 ML IVPB SCH (17:45)
[2022-11-01] MEDS ORDERED: Vancomycin HCl 750 MG VIAL ONE (18:27)
[2022-11-02] MEDS: Cefepime 1 GM in Sodium Chloride 0.9% 100 ML IVPB SCH ×3 (01:27→23:35)
[2022-11-02 05:32] LABS: INR-International Normal Ratio 1.2; PTT 35.3 sec (22.0-33.0)
[2022-11-02 05:36] LABS: ALT (SGPT) 15 U/L (8-55); AST (SGOT) 30 U/L (5-34); Albumin 3.4 g/dL (3.4-4.8); Alkaline Phosphatase 161 U/L (40-110); Anion Gap 16 mmol/L (10-20); BUN (Urea Nitrogen) 54 mg/dL (9.8-20.1); Bilirubin, Total 1.5 mg/dL (0.2-1.2); CRP (Inflammatory) 5.41 mg/dL (= or < 0.5); Calc. Creatinine Clearance 31 mL/min (70-130); Calcium 8.6 mg/dL (7.8-10.44); Carbon Dioxide 17 mmol/L (23-31); Chloride 108 mmol/L (98-107); Estimated GFR 23; Globulin 2.7 g/dL (2.4-3.5); Glucose 372 mg/dL (80-115); Potassium 4.5 mmol/L (3.5-5.1); Protein, Total 6.1 g/dL (5.8-8.1); Sodium 136 mmol/L (136-145)
[2022-11-02 05:47] LABS: #Eosinphils 0.1 10x3/uL (0.0-0.5); #Monocytes 0.7 10x3/uL (0.0-1.1); #Neutrophils 6.3 10x3/uL (1.5-8.4); %Basophils 0.4 % (0.0-2.0); %Eosinophils 1.4 % (0.0-6.0); %Lymphocytes 7.5 % (18.0-47.0); %Monocytes 9.5 % (0.0-10.0); %Neutrophils 80.6 % (40.0-75.0); Hemoglobin 11.6 g/dL (12.0-15.5); Mean Corpuscular HGB CONC 33.9 g/dL (32.0-36.0); Mean Corpuscular Volume 94.2 fl (81.6-98.3); Mean Platelet Volume 13.6 fl (7.4-10.4); Platelet Count 49 10x3/uL (150-450); RBC Distribution Width 14.4 % (11.5-14.5); Red Blood Cell (RBC) Count 3.63 10x6/uL (3.90-5.03); White Blood Cell (WBC) Count 7.8 10x3/uL (3.5-10.5)
[2022-11-02] MEDS: HYDROcodone/Acetaminophen 5/325 mg Tablet PO PRN ×4 (06:49→22:31)
[2022-11-02] MEDS: metroNIDAZOLE 500 MG in Premix Bag 1 BAG IVPB SCH (06:50)
[2022-11-02] MEDS: Insulin Regular 300 UNITS/3 ML VIAL SC PRN ×3 (07:50→14:12)
[2022-11-02] MEDS: Sodium Bicarbonate 150 MEQ, Admixture Fee 1 EACH in Dextrose 5% in Water 1,000 ML IV SCH (09:52)
[2022-11-02] MEDS: Ferrous Sulfate 325 MG TAB PO SCH (09:52)
[2022-11-02] MEDS: busPIRone HCl 5 MG TAB PO SCH ×2 (09:52→22:32)
[2022-11-02] MEDS: Pregabalin 25 MG CAP PO SCH ×2 (09:53→22:31)
[2022-11-02] MEDS: DULoxetine 30 MG CAP PO SCH ×2 (09:53→22:30)
[2022-11-02] MEDS: Rifaximin 200 MG TAB PO SCH ×3 (09:54→22:30)
[2022-11-02] MEDS: Lantus 1000 UNITS/10 ML VIAL SC SCH ×2 (09:55→22:44)
[2022-11-02] MEDS: FLUoxetine HCl 20 MG CAP PO SCH (09:59)
[2022-11-02] MEDS ORDERED: HumaLOG 300 UNITS/3 ML VIAL SC PRN (14:24)
[2022-11-03 04:43] LABS: INR-International Normal Ratio 1.2; PTT 34.3 sec (22.0-33.0); Prothrombin Time 13.1 sec (9.5-12.1)
[2022-11-03 04:48] LABS: ALT (SGPT) 16 U/L (8-55); AST (SGOT) 33 U/L (5-34); Albumin 3.4 g/dL (3.4-4.8); Alkaline Phosphatase 144 U/L (40-110); Anion Gap 12 mmol/L (10-20); BUN (Urea Nitrogen) 53 mg/dL (9.8-20.1); Bilirubin, Total 1.8 mg/dL (0.2-1.2); CRP (Inflammatory) 4.25 mg/dL (= or < 0.5); Calc. Creatinine Clearance 35 mL/min (70-130); Calcium 8.8 mg/dL (7.8-10.44); Carbon Dioxide 19 mmol/L (23-31); Chloride 112 mmol/L (98-107); Estimated GFR 27; Globulin 2.8 g/dL (2.4-3.5); Glucose 150 mg/dL (80-115); Protein, Total 6.2 g/dL (5.8-8.1); Sodium 139 mmol/L (136-145)
[2022-11-03 05:02] LABS: Hemoglobin 11.4 g/dL (12.0-15.5); Mean Corpuscular HGB CONC 33.8 g/dL (32.0-36.0); Mean Corpuscular Volume 94.7 fl (81.6-98.3); Mean Platelet Volume 12.5 fl (7.4-10.4); Platelet Count 50 10x3/uL (150-450); RBC Distribution Width 14.6 % (11.5-14.5); Red Blood Cell (RBC) Count 3.56 10x6/uL (3.90-5.03); White Blood Cell (WBC) Count 6.4 10x3/uL (3.5-10.5)
[2022-11-03 05:03] LABS: MDiff Complete? YES
[2022-11-03] MEDS: HYDROcodone/Acetaminophen 5/325 mg Tablet PO PRN ×3 (05:39→15:57)
[2022-11-03 06:30] LABS: Eosinophils 3 % (0-10); Lymphocytes 15 % (21-51); Monocytes 10 % (0-10); Neutrophil 72 % (42-75)
[2022-11-03 06:32] LABS: Microcytosis SLIGHT = 6-15 cells (100X) (0-5/hpf)
[2022-11-03 06:33] LABS: Hypochromia SLIGHT = 6-15 cells (100X) (0-5/hpf); Platelet Adequacy Comment Appears Decreased
[2022-11-03] MEDS: Sodium Bicarbonate 150 MEQ, Admixture Fee 1 EACH in Dextrose 5% in Water 1,000 ML IV SCH (06:58)
[2022-11-03] MEDS: Ferrous Sulfate 325 MG TAB PO SCH (08:57)
[2022-11-03] MEDS: Pregabalin 25 MG CAP PO SCH (09:00)
[2022-11-03] MEDS: Rifaximin 200 MG TAB PO SCH ×2 (09:01→15:00)
[2022-11-03] MEDS: Lantus 1000 UNITS/10 ML VIAL SC SCH (09:38)
[2022-11-03] MEDS: DULoxetine 30 MG CAP PO SCH (09:58)
[2022-11-03] MEDS: busPIRone HCl 5 MG TAB PO SCH (09:58)
[2022-11-03] MEDS: FLUoxetine HCl 20 MG CAP PO SCH (09:59)
[2022-11-03] MEDS ORDERED: Sodium Bicarbonate 2.5 MEQ/5 ML VIAL ONE (11:07)
[2022-11-03] MEDS ORDERED: Lidocaine 1% PF 5 ML VIAL ONE (11:07)
[2022-11-03] MEDS: Cefepime 1 GM in Sodium Chloride 0.9% 100 ML IVPB SCH (12:58)
[2022-11-03 16:54] VITALS: BP 126/68; TEMP 98.4
== END 2022-11-03 16:30 | disposition home or self-care (01) | DRG 867 ==
LOC: CSHERS 04:06 → SUATTDRO 04:06 → CSHERHOLD 06:15 → CSHTELE 08:20
PROVIDERS: ADMIT Family Medicine; ATTEND Internal Medicine
PROC: 30233J1 Transfusion of Nonautologous Serum Albumin into Peripheral Vein, Percutaneous Approach (ICD-10-PCS; 2022-10-30)
PROC: 0W9G3ZX Drainage of Peritoneal Cavity, Percutaneous Approach, Diagnostic (ICD-10-PCS; principal; 2022-10-31)
PROC: 6A550Z2 Pheresis of Platelets, Single (ICD-10-PCS; 2022-10-31)
PROC: 0W9G3ZZ Drainage of Peritoneal Cavity, Percutaneous Approach (ICD-10-PCS; 2022-11-03)
DX: A28.0 Pasteurellosis (principal); K76.7 Hepatorenal syndrome; L03.116 Cellulitis of left lower limb; N17.9 Acute kidney failure, unspecified; I13.0 Hypertensive heart and chronic kidney disease with heart failure and stage 1 through stage 4 chronic kidney disease, or unspecified chronic kidney disease; E87.20 Acidosis, unspecified; N18.4 Chronic kidney disease, stage 4 (severe); I50.20 Unspecified systolic (congestive) heart failure; F17.210 Nicotine dependence, cigarettes, uncomplicated; K70.31 Alcoholic cirrhosis of liver with ascites; E78.00 Pure hypercholesterolemia, unspecified; F32.A Depression, unspecified; E11.22 Type 2 diabetes mellitus with diabetic chronic kidney disease; K72.10 Chronic hepatic failure without coma; D63.1 Anemia in chronic kidney disease; D69.6 Thrombocytopenia, unspecified; E78.5 Hyperlipidemia, unspecified; Z90.49 Acquired absence of other specified parts of digestive tract; K76.82 Hepatic encephalopathy; Z95.810 Presence of automatic (implantable) cardiac defibrillator; Z88.8 Allergy status to other drugs, medicaments and biological substances; Z79.899 Other long term (current) drug therapy; Z79.4 Long term (current) use of insulin; Z90.710 Acquired absence of both cervix and uterus; Z90.89 Acquired absence of other organs; Z98.890 Other specified postprocedural states
CPT/HCPCS: 36415; 36416; 36430; 49083; 71045; 80053; 80202; 80400; 81001; 82042; 82140; 82533; 83605; 83735; 84100; 84157; 85025; 85384; 85610; 85730; 86140; 86850; 86870; 86900; 86901; 87040; 87070; 87076; 87077; 87081; 87086; 87149; 87205; 88112; 89051; 93005; 94640; 94760; 94762; 96365; 96375; 97139; J0690; J0692; J0834; J1815; J3370; J3490; J7050; J7070; J7620; P9035; P9047